=== PATIENT | male | born 1960 | race Caucasian/White ===

== ENCOUNTER 2019-08-26 12:40 | Outpatient (CLI) | payer BC, SELFPAY ==
--- NOTE | ~2019-08-26 | CT_ITS ---
EXAMINATION: CT abdomen w con EXAM DATE: 08/26/2019 13:17 INDICATION: Bloating for one year. Abdominal pain and diarrhea. TECHNIQUE: Spiral CT of the abdomen was performed following intravenous injection of 100 mL Omnipaque 350. Axial, coronal and sagittal images were reviewed. The dose-length product (DLP) for this exam ination was 557.75 mGy-cm. The exposure was tailored according to patient size (auto mA exposure con trol), and iterative reconstruction (ASIR) was used as additional dose reduction technique. There is no prior study for comparison. FINDINGS: There is hepatic steatosis without suspicious focal lesion identified. Spleen, adrenal glan ds, pancreas are unremarkable. There is a 3 x 6 cm peripherally partially calcified gallstone in the gallbladder neck with moderately distended gallbladder fundus likely containing additional small gal lstones. There is no biliary duct dilation, but can't exclude gallbladder dysfunction which could be evaluated with HIDA scan. Portal and splenic veins are patent. Kidneys enhance symmetrically. Ther e is no hydronephrosis. There is no retroperitoneal lymphadenopathy. There is mild scattered art eriosclerotic disease. Small umbilical fat-containing hernia. The appendix is normal. The stomach and small bowel are unremarkable. There is expected amount of c olonic stool. No free intraperitoneal gas. The heart is normal in size. There are no pericardial or pleural effusions. The lung bases are unremarkable. There is chronic L5 spondylolysis with abou t 4 mm anterolisthesis L5 on S1. There are no osteoblastic or osteolytic lesions identified. IMPRESSION: 1. Large gallstone in gallbladder neck with moderately distended fundus containing smaller stones. I f gallbladder dysfunction is clinical possibility, consider HIDA scan. 2. Chronic L5 spondylolysis. 3. Hepatic steatosis. Reviewed, dictated and finalized at location A. IMPRESSION: 1. Large gallstone in gallbladder neck with moderately distended fundus contai fidel smaller stones. If gallbladder dysfunction is clinical possibility, consid er HIDA scan. 2. Chronic L5 spondylolysis. 3. Hepatic steatosis.
[2019-08-26 13:07] LABS: Estimated Glomerular Filt Rate > 60
== END 2019-08-26 12:41 | disposition home or self-care (01) ==
PROVIDERS: PCP Internal Medicine; Visit Provider Clinical Nurse Specialist
DX: M47.896 Other spondylosis, lumbar region (principal); K76.0 Fatty (change of) liver, not elsewhere classified; K80.10 Calculus of gallbladder with chronic cholecystitis without obstruction
CPT/HCPCS: 36415; 74160; Q9967

== ENCOUNTER 2019-09-09 09:44 | Outpatient (CLI) | payer BC, SELFPAY ==
--- NOTE | ~2019-09-09 | NM_ITS ---
EXAMINATION: NM hepatobiliary w pharm DATE: 09/09/2019 14:05 INDICATION: Cholelithiasis. COMPARISON: CT abdomen and pelvis 08/26/2019 TECHNIQUE: 5 mCi Tc-99m mebrofenin (Choletec) was administered intravenously. Scintigraphic images o f the abdomen were obtained for one hour. Delayed images were obtained at 4 hours. FINDINGS: There is normal clearance of radiotracer from the blood pool. There is homogeneous tracer u ptake by the liver. Activity progresses to the bowel. IMPRESSION: 1. No activity in the gallbladder, consistent with acute cholecystitis. Reviewed, dictated and finalized at location A.
== END 2019-09-09 09:45 | disposition home or self-care (01) ==
PROVIDERS: PCP Internal Medicine; Visit Provider Clinical Nurse Specialist
DX: K80.20 Calculus of gallbladder without cholecystitis without obstruction (principal)
CPT/HCPCS: 78227; A9537; J2805

== ENCOUNTER 2019-09-10 13:18 | Outpatient (CLI) | payer BC, SELFPAY ==
[2019-09-10 13:49] LABS: Basophils Percent Auto 0.6 % (0.2-1.2); Eosinophils Absolute Auto 0.1 K/mm3 (0-0.3); Eosinophils Percent Auto 1.8 % (0-4.4); Hematocrit 48.9 % (42.0-52.0); Hemoglobin 16.9 g/dL (14.0-18.0); Immature Granulocyte Absolute 0.01 K/mm3 (0.00-0.031); Immature Granulocyte Percent A 0.2 % (0-0.5); Immature Platelet Fraction Pct 3.3 % (0.9-11.2); Lymphocytes Absolute Auto 1.22 K/mm3 (0.9-3.2); Lymphocytes Percent Auto 24.6 % (18.3-44.2); Mean Corpuscular HGB Conc 34.6 g/dl (32-36); Mean Corpuscular Hemoglobin 32.1 pg (26-34); Mean Corpuscular Volume 92.8 fl (80-100); Mean Platelet Volume 10.2 fl (7.4-10.4); Monocytes Absolute Auto 0.5 K/mm3 (0.1-0.6); Monocytes Percent Auto 10.9 % (2.6-8.5); Neutrophils Absolute Auto 3.1 K/mm3 (1.3-6.7); Neutrophils Percent Auto 61.9 % (45.5-73.1); Platelet Count Result 129 k/mm3 (150-375); Red Blood Count 5.27 M/mm3 (4.6-6.20); Red Cell Distribution Width 11.7 % (11.5-14.5)
[2019-09-10 14:04] LABS: Alanine Aminotransferase 44 U/L (4-50); Albumin Level 4.6 g/dL (3.5-5.1); Alkaline Phosphatase 77 U/L (38-126); Aspartate Amino Transferase 32 U/L (17-59); Bilirubin,Total 0.8 mg/dL (0.2-1.3); Blood Urea Nitrogen 15 mg/dL (9-20); Calcium 9.7 mg/dL (8.4-10.2); Carbon Dioxide 28 mmol/L (22-30); Chloride 100 mmol/L (98-107); Cholesterol 235 mg/dL (0-200); Estimated Glomerular Filt Rate > 60; Glucose 108 mg/dL (75-110); HDL Direct 74 mg/dL; Lipase 132 U/L (23-300); Potassium 4.2 mmol/L (3.4-5.0); Sodium 136 mmol/L (137-145); Triglycerides 128 mg/dL (<150)
[2019-09-10 14:15] LABS: LDL Cholesterol Direct 141 mg/dL
[2019-09-10 14:28] LABS: Amylase 88 U/L (30-110)
[2019-09-15 12:18] LABS: Gliadin AB, IgG 3 Units (<20); Reticulin IgA Negative (Negative); TTG IGA AB 1 U/mL (<4)
== END 2019-09-10 13:19 | disposition home or self-care (01) ==
PROVIDERS: PCP Internal Medicine; Visit Provider Clinical Nurse Specialist
DX: R19.7 Diarrhea, unspecified (principal); I10 Essential (primary) hypertension; R19.8 Other specified symptoms and signs involving the digestive system and abdomen
CPT/HCPCS: 36415; 80053; 80061; 82150; 83516; 83690; 85025; 85055; 86255

== ENCOUNTER 2019-12-27 01:09 | Outpatient (CLI) | payer BC, SELFPAY ==
[2019-12-27 17:59] LABS: SARS-CoV-2 RNA PCR Negative
== END 2019-12-27 01:10 | disposition home or self-care (01) ==
LOC: ANHCOVIDDT 01:09
PROVIDERS: PCP Internal Medicine; Visit Provider Internal Medicine Gastroenterology
DX: Z01.812 Encounter for preprocedural laboratory examination (principal); Z20.828 Contact with and (suspected) exposure to other viral communicable diseases
CPT/HCPCS: 87635; C9803; U0003

== ENCOUNTER 2019-12-30 01:03 | Day surgery (SDC) | payer BC, SELFPAY ==
[2019-12-23 16:27] VITALS: BMI 28.5
[2019-12-30 10:08] VITALS: BP 125/87; PULSE 93; RESP 20; TEMP 36.6; O2SAT 98
[2019-12-30] MEDS: LACTATED RINGERS 1,000 ML 150 ML IV CONT ×2 (10:18→13:51)
--- NOTE | 2019-12-30 10:57 | WPDANESEPPF ---
Anes - Initial Pre Proc Eval Procedure: Operation Date: 12/30/19 11:00 Proposed Procedures p Screening Colonoscopy - Dc Cobian MD Date/Time: 12/30/19 10:57 Surgeon: Dc Cobian MD Pre Op Diagnosis: neoplasm screening Patient Data Age: 59 Gender: M Height: 5 ft 11 in Weight: 91.4 kg Last Vital Signs Temp 97.8 F 12/30/19 10:08 Pulse 93 12/30/19 10:08 Resp 20 12/30/19 10:08 BP 125/87 12/30/19 10:08 Pulse Ox 98 12/30/19 10:08 Allergies Allergy/AdvReac Type Severity Reaction Status Date / Time No Known Allergies Allergy Verified 12/30/19 10:06 Home Medications Medication Instructions Recorded Confirmed Type melatonin 5 mg tablet 5 mg PO DAILY PRN tablet 02/10/19 12/30/19 History lisinopril 10 mg tablet 10 mg PO DAILY #30 tablet 10/02/19 12/23/19 Rx alprazolam 0.5 mg tablet 0.5 mg PO DAILY PRN #30 tablet 12/19/19 12/23/19 Rx hydroxyzine HCl 50 mg PO HS PRN 12/23/19 12/23/19 History Patient hx anesthesia problems: none Family hx anesthesia problems: none PMFSH Past Medical History Medical History (Updated 10/27/19 @ 15:01 by Swati Wolf NP) Anxiety Cholecystectomy planned 09/2019. Depression HTN (hypertension) Family History Family History (Updated 02/10/19 @ 08:45 by Daisy Brunson CMA) Father Diabetes mellitus Family history of cardiovascular disease Mother Dementia Parkinsons disease Sibling Family history of elevated blood lipids Son Anxiety and depression Social History Social History (Updated 09/10/19 @ 15:08 by Daisy Brunson CMA) Smoking status: Never smoker Alcohol intake: current Drinks per week: 20 Alcohol use details: DRINKS 2 TO 3 GLASSES OF WINE PER NIGHT Substance use: never Substance use type: does not use Spiritual care concerns: No Anes - Eval Final PreProcedure Day of Procedure 12/30/19 10:57 Patient weight: normal Heart: regular rate and rhythm Lungs: clear to auscultation Airway: Mallampati scale class II Neurological: alert and oriented Last oral intake: >/= 8 hours ASA classification: II Emergent: no Anesthetic plan: proceed Anesthesia type and monitoring: general GIVS and standard monitoring Informed Consent: The patient's anesthetic plan and its attendant risks and benefits were discussed with the patient/family/POA. Questions were solicited and answers provided to the satisfaction of the patient/family/POA.
--- NOTE | 2019-12-30 13:22 | PM.HPGS ---
History of Present Illness History of Present Illness Consent: Risks, benefits, and alternatives have been discussed and questions answered. Patient agrees to proceed with procedure. Chief complaint: neoplasm screening Narrative: Marco A Guerrero is a 59 year old male here for screening colonoscopy Review of Systems Constitutional: Constitutional: Denies headache(s) and Denies weakness Eyes: Eyes: Denies blurry vision ENT: Reports Normal hearing present, Denies headache(s) and Denies neck pain Cardiovascular: Cardiovascular: Denies chest pain and Denies dyspnea Respiratory: Respiratory: Denies dyspnea Gastrointestinal: Gastrointestinal: Reports no additional gastrointestinal complaints Genitourinary: Genitourinary: Denies dysuria Musculoskeletal: Musculoskeletal: Denies neck pain Integumentary/Breasts: Skin/Breast: Denies dry skin Neurologic: Reports Normal hearing present, Denies headache(s) and Denies weakness Psychiatric: Psychiatric: Denies anxiety Endocrine: Endocrine: Denies change in body appearance Hematologic/Lymphatic: Hematologic/Lymphatic: Denies easy bleeding Allergic/Immunologic: Allergic/Immunologic: Denies urticaria [facility] Past Medical History Medical History (Updated 12/30/19 @ 13:22 by Dc Cobian MD) Anxiety Cholecystectomy planned 09/2019. Colon cancer screening Depression HTN (hypertension) Family History Family History (Updated 02/10/19 @ 08:45 by Daisy Brunson CMA) Father Diabetes mellitus Family history of cardiovascular disease Mother Dementia Parkinsons disease Sibling Family history of elevated blood lipids Son Anxiety and depression Social History Social History (Updated 09/10/19 @ 15:08 by Daisy Brunson CMA) Smoking status: Never smoker Alcohol intake: current Drinks per week: 20 Alcohol use details: DRINKS 2 TO 3 GLASSES OF WINE PER NIGHT Substance use: never Substance use type: does not use Spiritual care concerns: No Meds Home Medications and Allergies Home Medications Medication Instructions Recorded Confirmed Type melatonin 5 mg tablet 5 mg PO DAILY PRN tablet 02/10/19 12/30/19 History lisinopril 10 mg tablet 10 mg PO DAILY #30 tablet 10/02/19 12/23/19 Rx alprazolam 0.5 mg tablet 0.5 mg PO DAILY PRN #30 tablet 12/19/19 12/23/19 Rx hydroxyzine HCl 50 mg PO HS PRN 12/23/19 12/23/19 History Allergies Allergy/AdvReac Type Severity Reaction Status Date / Time No Known Allergies Allergy Verified 12/30/19 10:06 Vital Signs Vital Signs - 24 hr 12/30/19 10:08 Temperature 97.8 F Pulse Rate 93 Respiratory Rate 20 Blood Pressure 125/87 Pulse Oximetry 98 Exam Const: General: comfortable and no acute distress HENMT: General nose exam: Normal nares present Eyes: General: appearance normal, both eyes and all related structures Neck: Neck: no JVD Resp: Auscultation: clear to auscultation bilaterally Cardio: Rate: regular rate Rhythm: regular rhythm GI: Inspection: non-distended GI Palp: Yes Soft to palpation Skin: General skin exam: normal color Neuro: General: gait normal Speech: normal speech Extrem: General: normal to inspection Psych: Mental Status: mental status grossly normal Assessment and Plan Assessment and plan (1) Colon cancer screening: Code(s): Z12.11 - Encounter for screening for malignant neoplasm of colon Status: Acute Assessment and Plan: will proceed with colonoscopy
[2019-12-30 13:53] VITALS: BP 114/78; PULSE 85; RESP 18; O2SAT 99
[2019-12-30 14:03] VITALS: BP 131/84; PULSE 90; RESP 20; O2SAT 99
[2019-12-30 14:13] VITALS: BP 130/83; PULSE 79; RESP 21; O2SAT 100
== END 2019-12-30 14:20 | disposition home or self-care (01) ==
PROVIDERS: PCP Internal Medicine; Visit Provider Internal Medicine Gastroenterology
PROC: 0DJD8ZZ Inspection of Lower Intestinal Tract, Via Natural or Artificial Opening Endoscopic (ICD-10-PCS; CPT 45378; principal; 2019-12-30 11:00)
DX: Z12.11 Encounter for screening for malignant neoplasm of colon (principal); D12.0 Benign neoplasm of cecum; D12.3 Benign neoplasm of transverse colon; D12.5 Benign neoplasm of sigmoid colon; K57.30 Diverticulosis of large intestine without perforation or abscess without bleeding; I10 Essential (primary) hypertension; F41.8 Other specified anxiety disorders
CPT/HCPCS: 45380; 45385; 88305; J2704; J7120

== ENCOUNTER 2020-02-18 16:22 | Outpatient (CLI) | payer BC, SELFPAY ==
[2020-02-23 15:35] LABS: Testosterone Free 85.6 pg/mL (35.0-155.0); Testosterone Total 586 ng/dL (250-1100)
== END 2020-02-18 16:23 | disposition home or self-care (01) ==
LOC: ANHLAB 16:24
PROVIDERS: PCP Internal Medicine; Visit Provider Nurse Practitioner
DX: R53.83 Other fatigue (principal)
CPT/HCPCS: 36415; 84402; 84403

== ENCOUNTER 2020-12-16 08:17 | Outpatient (CLI) | payer BC, SELFPAY ==
--- NOTE | 2020-12-16 08:30 | ECG_ITS ---
Measurements Intervals [place] Rate: 88 P: 37 AK: 162 QRS: -21 QRSD: 86 T: 41 QT: 350 QTc: 424 Interpretive Statements SINUS RHYTHM POOR R WAVE PROGRESSION, ANTERIOR LEADS BORDERLINE ECG Electronically Signed On 12-16-2020 9:19:47 CDT by Shade Betancourt D.O.
== END 2020-12-16 08:18 | disposition home or self-care (01) ==
LOC: ANHSURGERY 08:21
PROVIDERS: PCP Internal Medicine; Visit Provider Surgery Plastic and Reconstructive Surgery
DX: Z01.810 Encounter for preprocedural cardiovascular examination (principal); I10 Essential (primary) hypertension
CPT/HCPCS: 93005

== ENCOUNTER 2021-02-19 12:48 | Outpatient (CLI) | payer BC, SELFPAY ==
[2021-02-21 10:57] LABS: PCP NEGATIVE ng/mL (<25)
[2021-02-24 07:20] LABS: Amphetamines NEGATIVE; Barbiturates NEGATIVE; Benzodiazepines NEGATIVE; Cocaine Metabolites NEGATIVE; Marijuana Metabolites NEGATIVE
[2021-02-24 07:24] LABS: Notes and Comments NEGATIVE
== END 2021-02-19 12:49 | disposition home or self-care (01) ==
LOC: ANHLAB 12:50
PROVIDERS: PCP Internal Medicine; Visit Provider Clinical Nurse Specialist
DX: F41.9 Anxiety disorder, unspecified (principal)
CPT/HCPCS: 80307

== ENCOUNTER → 2022-01-16 14:31 | Outpatient (CLI) | payer BC, SELFPAY ==
--- NOTE | ~2022-01-16 | XR_ITS ---
XR elbow RT min 3V DATE: 01/16/2022 14:49 INDICATION: Elbow pain after coughing TECHNIQUE: 3 views COMPARISON: None FINDINGS: No fracture or dislocation or joint effusion. No periosteal reaction or bone destruction. IMPRESSION: No fracture or dislocation or joint effusion Reviewed, dictated and finalized at location A.
== END ==
PROVIDERS: PCP Internal Medicine; Visit Provider Internal Medicine
DX: M25.521 Pain in right elbow (principal)
CPT/HCPCS: 73080

== ENCOUNTER 2022-03-24 08:15 | Outpatient (CLI) | payer BC, SELFPAY ==
[2022-03-24 09:00] LABS: Basophils Percent Auto 0.6 % (0.2-1.2); Eosinophils Absolute Auto 0.1 K/mm3 (0-0.3); Eosinophils Percent Auto 2.2 % (0-4.4); Hematocrit 49.7 % (42.0-52.0); Hemoglobin 17.2 g/dL (14.0-18.0); Immature Granulocyte Absolute 0.01 K/mm3 (0.00-0.031); Immature Granulocyte Percent A 0.3 % (0-0.5); Lymphocytes Absolute Auto 1.15 K/mm3 (0.9-3.2); Lymphocytes Percent Auto 35.4 % (18.3-44.2); Mean Corpuscular HGB Conc 34.6 g/dl (32-36); Mean Corpuscular Hemoglobin 32.5 pg (26-34); Mean Platelet Volume 9.6 fl (7.4-10.4); Monocytes Absolute Auto 0.4 K/mm3 (0.1-0.6); Monocytes Percent Auto 13.5 % (2.6-8.5); Neutrophils Absolute Auto 1.6 K/mm3 (1.3-6.7); Platelet Count Result 111 k/mm3 (150-375); Red Blood Count 5.29 M/mm3 (4.6-6.20); Red Cell Distribution Width 12.3 % (11.5-14.5); White Blood Count 3.3 K/mm3 (4.5-10.0)
[2022-03-24 09:14] LABS: Alanine Aminotransferase 58 U/L (6-50); Albumin Level 4.5 g/dL (3.5-5.1); Alkaline Phosphatase 75 U/L (38-126); Anion Gap 6 mmol/L (8-16); Aspartate Amino Transferase 42 U/L (17-59); Bilirubin,Total 0.7 mg/dL (0.2-1.3); Blood Urea Nitrogen 15 mg/dL (9-20); Carbon Dioxide 30 mmol/L (22-30); Chloride 102 mmol/L (98-107); Cholesterol 271 mg/dL (0-200); Estimated Glomerular Filt Rate > 60; Glucose 102 mg/dL (65-110); HDL Direct 95 mg/dL; Potassium 4.5 mmol/L (3.4-5.0); Sodium 138 mmol/L (137-145); Triglycerides 150 mg/dL (<150)
[2022-03-24 09:25] LABS: LDL Cholesterol Direct 120 mg/dL
[2022-03-24 09:43] LABS: Prostate Specific Antigen 4.8 ng/mL (< OR = 4.0)
== END 2022-03-24 08:16 | disposition home or self-care (01) ==
PROVIDERS: PCP Internal Medicine; Visit Provider Nurse Practitioner
DX: Z12.5 Encounter for screening for malignant neoplasm of prostate (principal); Z13.220 Encounter for screening for lipoid disorders; Z13.29 Encounter for screening for other suspected endocrine disorder
CPT/HCPCS: 36415; 80053; 80061; 84153; 85025; G0103

== ENCOUNTER 2022-05-03 00:10 | Day surgery (SDC) | payer BC, SELFPAY ==
[2022-04-20 13:58] VITALS: BMI 28.5
[2022-05-03 07:10] VITALS: BP 136/89; PULSE 84; RESP 18; TEMP 36.1; O2SAT 98
[2022-05-03] MEDS: LACTATED RINGERS 1,000 ML 150 ML IV CONT (07:12)
--- NOTE | 2022-05-03 07:54 | WPDANESEPPF ---
Anes - Initial Pre Proc Eval Procedure: Operation Date: 05/03/22 08:30 Proposed Procedures p Screening Colonoscopy - Dc Cobian MD Date/Time: 05/03/22 07:54 Surgeon: Dc Cobian MD Pre Op Diagnosis: hx colon polyps Patient Data Age: 62 Gender: M Height: 1.8 m Weight: 91.3 kg Last Vital Signs Temp 96.9 F L 05/03/22 07:10 Pulse 84 05/03/22 07:10 Resp 18 05/03/22 07:10 BP 136/89 05/03/22 07:10 Pulse Ox 98 05/03/22 07:10 O2 Del Method Room Air 05/03/22 07:10 Allergies Allergy/AdvReac Type Severity Reaction Status Date / Time No Known Allergies Allergy Verified 05/03/22 07:09 Home Medications Medication Instructions Recorded Confirmed Type melatonin 5 mg tablet 10 mg PO HS PRN Insomnia 02/10/19 05/03/22 History lisinopril 10 mg tablet 10 mg PO DAILY #90 tabs 08/04/21 05/03/22 Rx alprazolam 0.5 mg tablet (Xanax) 0.5 mg PO DAILY PRN anxiety #30 03/29/22 05/03/22 Rx tabs atorvastatin 10 mg tablet 10 mg PO QHS #90 tabs 03/30/22 05/03/22 Rx diphenhydramine HCl 25 mg tablet 25 mg PO HS PRN Insomnia 04/20/22 05/03/22 History esomeprazole magnesium 20 mg 20 mg PO DAILY 04/20/22 05/03/22 History capsule,delayed release hydroxyzine HCl 50 mg tablet 50 mg PO HS 04/20/22 05/03/22 History mecobalamin (vitamin B12) 5,000 5,000 mcg PO DAILY 04/20/22 05/03/22 History mcg chewable tablet pyridoxine (vitamin B6) 100 mg 100 mg PO DAILY 04/20/22 05/03/22 History tablet vit 1 tablet PO DAILY 04/20/22 05/03/22 History [id number] 500 mg-50 mg-25 mg-40 mg tablet (Bioflex) Patient hx anesthesia problems: none Family hx anesthesia problems: none Results Review: All pre-operative results and documents have been reviewed as part of the pre-operative evaluation. [facility] Past Medical History Medical History (Updated 03/30/22 @ 15:24 by Swati Wolf NP) Anxiety Colon cancer screening Depression Elevated PSA HTN (hypertension) Hyperlipidemia Surgical History Surgical History History of cholecystectomy History of colonoscopy History of knee surgery Family History Family History Father Diabetes mellitus Family history of cardiovascular disease Mother Dementia Parkinsons disease Sibling Family history of elevated blood lipids Son Anxiety and depression Social History Social History (Updated 03/30/22 @ 14:50 by Karen Rasmussen MA) Smoking status: Never smoker Alcohol intake: current Drinks per week: 14 Alcohol use details: wine Substance use: never Substance use type: does not use Lack of Transportation: No Lack of Food: Sometimes True Current Housing: I Have Housing Concerned About Future Housing: No Difficulty Paying Gas/Electric Bills: No Difficulty Paying for Meds: No Currently Unemployed: No Education: Bachelor's Degree Difficulty w/ Childcare or Family Care: No Living arrangements: alone Spiritual care concerns: No Anes - Eval Final PreProcedure Day of Procedure 05/03/22 07:54 Patient weight: normal Heart: regular rate and rhythm Lungs: clear to auscultation Airway: Mallampati scale class II Neurological: alert and oriented Last oral intake: >/= 8 hours ASA classification: II Emergent: no Anesthetic plan: proceed Anesthesia type and monitoring: general GIVS and standard monitoring Results Review: All pre-operative results and documents have been reviewed as part of the pre-operative evaluation. Informed Consent: The patient's anesthetic plan and its attendant risks and benefits were discussed with the patient/family/POA. Questions were solicited and answers provided to the satisfaction of the patient/family/POA.
--- NOTE | 2022-05-03 08:25 | PM.HPGS ---
History of Present Illness History of Present Illness Consent: Risks, benefits, and alternatives have been discussed and questions answered. Patient agrees to proceed with procedure. Chief complaint: hx colon polyps Narrative: Marco A Guerrero is a 62 year old male with several TA polyps removed 10/2021 Review of Systems Constitutional: Constitutional: Denies headache(s) and Denies weakness Eyes: Eyes: Denies blurry vision ENT: Reports Normal hearing present, Denies headache(s) and Denies neck pain Cardiovascular: Cardiovascular: Denies chest pain and Denies dyspnea Respiratory: Respiratory: Denies dyspnea Gastrointestinal: Gastrointestinal: Reports no additional gastrointestinal complaints Genitourinary: Genitourinary: Denies dysuria Musculoskeletal: Musculoskeletal: Denies neck pain Integumentary/Breasts: Skin/Breast: Denies dry skin Neurologic: Reports Normal hearing present, Denies headache(s) and Denies weakness Psychiatric: Psychiatric: Denies anxiety Endocrine: Endocrine: Denies change in body appearance Hematologic/Lymphatic: Hematologic/Lymphatic: Denies easy bleeding Allergic/Immunologic: Allergic/Immunologic: Denies urticaria PMFSH Past Medical History Medical History (Updated 05/03/22 @ 08:26 by Dc Cobian MD) Adenomatous colon polyp Anxiety Colon cancer screening Depression Elevated PSA HTN (hypertension) Hyperlipidemia Surgical History Surgical History History of cholecystectomy History of colonoscopy History of knee surgery Family History Family History Father Diabetes mellitus Family history of cardiovascular disease Mother Dementia Parkinsons disease Sibling Family history of elevated blood lipids Son Anxiety and depression Social History Social History (Updated 03/30/22 @ 14:50 by Karen Rasmussen MA) Smoking status: Never smoker Alcohol intake: current Drinks per week: 14 Alcohol use details: wine Substance use: never Substance use type: does not use Lack of Transportation: No Lack of Food: Sometimes True Current Housing: I Have Housing Concerned About Future Housing: No Difficulty Paying Gas/Electric Bills: No Difficulty Paying for Meds: No Currently Unemployed: No Education: Bachelor's Degree Difficulty w/ Childcare or Family Care: No Living arrangements: alone Spiritual care concerns: No Meds Home Medications and Allergies Home Medications Medication Instructions Recorded Confirmed Type melatonin 5 mg tablet 10 mg PO HS PRN Insomnia 02/10/19 05/03/22 History lisinopril 10 mg tablet 10 mg PO DAILY #90 tabs 08/04/21 05/03/22 Rx alprazolam 0.5 mg tablet (Xanax) 0.5 mg PO DAILY PRN anxiety #30 03/29/22 05/03/22 Rx tabs atorvastatin 10 mg tablet 10 mg PO QHS #90 tabs 03/30/22 05/03/22 Rx diphenhydramine HCl 25 mg tablet 25 mg PO HS PRN Insomnia 04/20/22 05/03/22 History esomeprazole magnesium 20 mg 20 mg PO DAILY 04/20/22 05/03/22 History capsule,delayed release hydroxyzine HCl 50 mg tablet 50 mg PO HS 04/20/22 05/03/22 History mecobalamin (vitamin B12) 5,000 5,000 mcg PO DAILY 04/20/22 05/03/22 History mcg chewable tablet pyridoxine (vitamin B6) 100 mg 100 mg PO DAILY 04/20/22 05/03/22 History tablet vit 1 tablet PO DAILY 04/20/22 05/03/22 History [id number] 500 mg-50 mg-25 mg-40 mg tablet (BioYashi) Allergies Allergy/AdvReac Type Severity Reaction Status Date / Time No Known Allergies Allergy Verified 05/03/22 07:09 Vital Signs Vital Signs - 24 hr 05/03/22 07:10 Temperature 96.9 F L Pulse Rate 84 Respiratory Rate 18 Blood Pressure 136/89 Pulse Oximetry 98 Oxygen Delivery Room Air Exam Const: General: comfortable and no acute distress HENMT: Face/Nose/Sinus: Normal nares present Eyes: General: appearance normal,
[2022-05-03 08:49] VITALS: BP 93/53; PULSE 76; RESP 25; O2SAT 97
[2022-05-03 08:59] VITALS: BP 111/81; PULSE 72; RESP 22; O2SAT 99
[2022-05-03 09:09] VITALS: BP 120/85; PULSE 63; RESP 21; O2SAT 100
== END 2022-05-03 09:17 | disposition home or self-care (01) ==
PROVIDERS: PCP Internal Medicine; Visit Provider Internal Medicine Gastroenterology
PROC: 0DJD8ZZ Inspection of Lower Intestinal Tract, Via Natural or Artificial Opening Endoscopic (ICD-10-PCS; CPT 45378; principal; 2022-05-03 08:30)
DX: Z12.11 Encounter for screening for malignant neoplasm of colon (principal); D12.2 Benign neoplasm of ascending colon; D12.4 Benign neoplasm of descending colon; K57.30 Diverticulosis of large intestine without perforation or abscess without bleeding; K64.8 Other hemorrhoids; I10 Essential (primary) hypertension; E78.5 Hyperlipidemia, unspecified; F41.9 Anxiety disorder, unspecified; F32.A Depression, unspecified
CPT/HCPCS: 45385; 88305; J2704; J7120

== ENCOUNTER 2022-05-29 15:00 | Outpatient (CLI) | payer BC, SELFPAY ==
--- NOTE | 2022-05-29 14:30 | ECG_ITS ---
Measurements Intervals [place] Rate: 75 P: 28 ME: 175 QRS: -8 QRSD: 86 T: 17 QT: 373 QTc: 417 Interpretive Statements SINUS RHYTHM BORDERLINE R WAVE PROGRESSION, ANTERIOR LEADS BASELINE ARTIFACT- I, II, III, AVR, AVL, AVF BORDERLINE ECG COMPARED TO ECG 12/16/2020 08:33:23 NO SIGNIFICANT CHANGES Electronically Signed On 05-29-2022 16:50:37 [employer]PET RENOVATOR by Shade Betancourt D.O.
== END 2022-05-29 15:01 | disposition home or self-care (01) ==
LOC: ANHSURGERY 15:04
PROVIDERS: PCP Internal Medicine; Visit Provider Surgery Plastic and Reconstructive Surgery
DX: E78.5 Hyperlipidemia, unspecified (principal); Z01.818 Encounter for other preprocedural examination; R94.31 Abnormal electrocardiogram [ECG] [EKG]
CPT/HCPCS: 93005

== ENCOUNTER 2022-06-05 15:42 | Outpatient (CLI) | payer BC, SELFPAY ==
[2022-06-05 15:59] LABS: Basophils Percent Auto 0.5 % (0.2-1.2); Eosinophils Absolute Auto 0.1 K/mm3 (0-0.3); Eosinophils Percent Auto 1.4 % (0-4.4); Hematocrit 47.1 % (42.0-52.0); Hemoglobin 16.5 g/dL (14.0-18.0); Immature Granulocyte Absolute 0.01 K/mm3 (0.00-0.031); Immature Granulocyte Percent A 0.2 % (0-0.5); Immature Platelet Fraction Pct 4.3 % (0.9-11.2); Lymphocytes Absolute Auto 0.96 K/mm3 (0.9-3.2); Lymphocytes Percent Auto 22.2 % (18.3-44.2); Mean Corpuscular Hemoglobin 32.4 pg (26-34); Mean Corpuscular Volume 92.5 fl (80-100); Mean Platelet Volume 9.5 fl (7.4-10.4); Monocytes Absolute Auto 0.4 K/mm3 (0.1-0.6); Monocytes Percent Auto 9.5 % (2.6-8.5); Neutrophils Absolute Auto 2.9 K/mm3 (1.3-6.7); Neutrophils Percent Auto 66.2 % (45.5-73.1); Platelet Count Result 109 k/mm3 (150-375); Red Blood Count 5.09 M/mm3 (4.6-6.20); Red Cell Distribution Width 11.8 % (11.5-14.5); White Blood Count 4.3 K/mm3 (4.5-10.0)
[2022-06-05 16:32] LABS: Iron 144 ug/dL (49-181)
[2022-06-05 16:34] LABS: Alanine Aminotransferase 49 U/L (6-50); Albumin Level 4.3 g/dL (3.5-5.1); Alkaline Phosphatase 74 U/L (38-126); Anion Gap 3 mmol/L (8-16); Aspartate Amino Transferase 37 U/L (17-59); Bilirubin,Total 0.9 mg/dL (0.2-1.3); Blood Urea Nitrogen 15 mg/dL (9-20); Calcium 9.1 mg/dL (8.4-10.2); Carbon Dioxide 32 mmol/L (22-30); Chloride 99 mmol/L (98-107); Estimated Glomerular Filt Rate > 60; Glucose 105 mg/dL (65-110); Potassium 4.3 mmol/L (3.4-5.0); Sodium 134 mmol/L (137-145)
[2022-06-05 16:44] LABS: Percent Iron Saturation 49 % (20-50)
[2022-06-09 08:31] LABS: Reference Lab Test Result Negative
== END 2022-06-05 15:43 | disposition home or self-care (01) ==
LOC: ANHLAB 15:43
PROVIDERS: PCP Internal Medicine; Visit Provider Internal Medicine Hematology & Oncology
DX: D69.59 Other secondary thrombocytopenia (principal)
CPT/HCPCS: 36415; 80053; 82607; 82728; 83540; 83550; 85025; 85055; 86023

== ENCOUNTER 2022-06-06 00:32 | Day surgery (SDC) | payer BC, SELFPAY ==
--- NOTE | 2022-05-26 14:01 | SUR.PREOP ---
Report to the Outpatient Waiting Room, entrance under the green pavilion located off [facility], at time 1030 on date 06/06/22. Planned Procedure Time: 1230. Time changes happen often and if your time is changed the preop area will call you the afternoon before. - You and your visitor will be asked to self-screen and do not enter if you have any COVID symptoms. - Only one visitor is requested with a max of two and NO children visitors are allowed at this time. - The patient visitor may be requested to leave or wait in car when not with patient due to distancing restrictions. - A mask is optional within the hospital at this time. Patients may have clear liquids (water, carbonated beverages, clear teas, apple juice) until 3 hours prior to surgery with a maximum of 20 ounces. - No food from midnight until time of surgery - Infants may have breast milk until 4 hours before surgery, formula 6 hours prior to surgery. - Children will be allowed to drink immediately following surgery. If applicable, please bring a bottle or sippy cup to assist with drinking. Juice, water, soda, and popsicles are readily available. For infants on formula, please bring formula the day of surgery. Pacifiers are allowed. Take the following medications with a SIP of water the morning of surgery: XANAX DO NOT STOP ANY OF YOUR OTHER PRESCRIPTION MEDICATIONS PRIOR TO SURGERY ?EXCEPT THE FOLLOWING Medications to discontinue per physician VITAMINS & SUPPLEMENTS Date to take last dose 06/03/22 Please no make-up, nail yoruba, hairspray, perfume, deodorant, or body powder the day of surgery. No jewelry (including any body piercings) or valuables the day of surgery, leave them at home. Please take a shower or bath the night before, or the morning of, surgery with an antibacterial soap. Wear comfortable, loose fitting clothing. Children are encouraged to wear pajamas. - Jewelry must be removed prior to entering the operating room. Rings and piercings that are not removed may be cut off. - The hospital will not accept responsibility for valuables. - Please leave all valuables, including medications, at home the day of surgery. If you are going home after surgery, a licensed customer service driver must drive you home. - NO public transportation without another adult if you receive anesthesia. - We recommend that an adult stay with you for 24 hours following discharge. - We also recommend that you do not drive, make important decision, drink alcoholic beverages, or take any drugs that were not prescribed by your health care provider for at least 24 hours after your discharge time. For Pediatric surgeries, we recommend two adults accompany the child home. Follow any additional instructions given to you from your surgeon. If you or anyone in your household have experienced Covid symptoms in the past week, please notify your surgeon or the nurse liaison at the phone number below for possible testing. Telephone instructions given to IRINA BAZZI and asked if any additional questions and then verbalized understanding. Patient advised to call surgeon office or pre surgery nurse liaison [phone] if any additional questions.
[2022-05-26 14:14] VITALS: BMI 28.5
[2022-06-06] VITALS (7 sets, daily range): BP systolic 129–145; BP diastolic 87–98; PULSE 65–84; RESP 14–16; TEMP 36.3; O2SAT 98–100
--- NOTE | 2022-06-06 12:10 | WPDHPUPDATE1 ---
History and Physical Update Update Date/Time: 06/06/22 12:10 History and Physical has been reviewed, including an updated exam of the patient. There are NO changes in the patient's condition. Risks, benefits, and alternatives have been discussed and questions answered. Patient agrees to proceed with procedure.
[2022-06-06] MEDS: LACTATED RINGERS 1,000 ML 30 ML IV CONT (13:05)
--- NOTE | 2022-06-06 13:16 | P.OP_ITS ---
Procedure Note - Detailed Date of Procedure 06/06/22 Pre-op Diagnosis subq mass right lateral canthus Post-op Diagnosis Same Procedure Performed 1. Excisions right upper eyelid lateral cyst (lateral) 0.3 cm 2. Excisions right upper eyelid lateral cyst (medial) 0.2 cm Surgeon Yuval Santos MD Anesthesia General Description of Procedure Preoperatively the risks, benefits alternatives discussed in extensive detail. I want him to be very realistic about risks involved as well as expectations. He understands risk of blindness. He understands the risk of recurrence. He understands the risk of long-term lid dysfunction, dry eyes, and other visual concerns / vision loss. All questions were answered to him his family's satisfaction. They voiced a clear understanding. Consent obtained. He was marked in the preoperative holding area. He was taken to the operating room placed supine on the operating room table. Anesthesia provided by anesthesiology and prepped and draped in standard sterile fashion. Surgical time-out was taken. 1% lidocaine and 0.25% Marcaine with epinephrine was used anesthetize locally. These were excised and closed with 5-0 fast- absorbing gut. See dimensions as above. He was awoken taken to the PACU without difficulty. All instrument sponge counts were correct at the end of the case. Estimated Blood Loss 5 Drains No Packing No Pathology Yes (Right upper lateral lid cysts x 2) Complications No immediate complications Condition Stable Disposition PACU
--- NOTE | 2022-06-06 13:23 | WPDANESEPPF ---
Anes - Initial Pre Proc Eval Procedure: Operation Date: 06/06/22 12:30 Proposed Procedures p Excision Subcutaneous Mass Right Lateral Canthus - Yuval Santos MD Date/Time: 06/06/22 13:23 Surgeon: Yuval Santos MD Pre Op Diagnosis: subq mass right lateral canthus Patient Data Age: 62 Gender: M Height: 1.8 m Weight: 93.7 kg Last Vital Signs Temp 36.3 C L 06/06/22 11:54 Pulse 84 06/06/22 11:54 Resp 14 06/06/22 11:54 BP 129/89 06/06/22 11:54 Pulse Ox 100 06/06/22 11:54 O2 Del Method Room Air 06/06/22 11:54 Allergies Allergy/AdvReac Type Severity Reaction Status Date / Time No Known Allergies Allergy Verified 06/06/22 12:10 Home Medications Medication Instructions Recorded Confirmed Type melatonin 5 mg tablet 10 mg PO HS PRN Insomnia 02/10/19 05/26/22 History lisinopril 10 mg tablet 10 mg PO DAILY #90 tabs 08/04/21 05/26/22 Rx alprazolam 0.5 mg tablet (Xanax) 0.5 mg PO DAILY PRN anxiety #30 03/29/22 05/26/22 Rx tabs atorvastatin 10 mg tablet 10 mg PO QHS #90 tabs 03/30/22 05/26/22 Rx diphenhydramine HCl 25 mg tablet 25 mg PO HS PRN Insomnia 04/20/22 05/26/22 History esomeprazole magnesium 20 mg 20 mg PO DAILY 04/20/22 05/26/22 History capsule,delayed release hydroxyzine HCl 50 mg tablet 50 mg PO HS 04/20/22 05/26/22 History mecobalamin (vitamin B12) 5,000 5,000 mcg PO DAILY 04/20/22 05/26/22 History mcg chewable tablet pyridoxine (vitamin B6) 100 mg 100 mg PO DAILY 04/20/22 05/26/22 History tablet vit 1 tablet PO DAILY 04/20/22 05/26/22 History [id number]-bemhchi-[id number] 500 mg-50 mg-25 mg-40 mg tablet (Bioflex) Patient hx anesthesia problems: none Family hx anesthesia problems: none Results Review: All pre-operative results and documents have been reviewed as part of the pre-operative evaluation. [facility] Past Medical History Medical History Adenomatous colon polyp Anxiety Colon cancer screening Depression Elevated PSA HTN (hypertension) Hyperlipidemia Surgical History Surgical History History of cholecystectomy History of colonoscopy History of knee surgery Family History Family History Father Diabetes mellitus Family history of cardiovascular disease Mother Dementia Parkinsons disease Sibling Family history of elevated blood lipids Son Anxiety and depression Social History Social History Smoking status: Never smoker Alcohol intake: current Drinks per week: 14 Alcohol use details: wine Substance use: never Substance use type: does not use Lack of Transportation: No Lack of Food: Sometimes True Current Housing: I Have Housing Concerned About Future Housing: No Difficulty Paying Gas/Electric Bills: No Difficulty Paying for Meds: No Currently Unemployed: No Education: Bachelor's Degree Difficulty w/ Childcare or Family Care: No Living arrangements: alone Spiritual care concerns: No Anes - Eval Final PreProcedure Day of Procedure 06/06/22 13:23 Patient weight: overweight Heart: regular rate and rhythm Lungs: clear to auscultation Airway: Mallampati scale class II Neurological: alert and oriented Last oral intake: >/= 8 hours ASA classification: II Emergent: no Anesthetic plan: proceed Anesthesia type and monitoring: general LMA and standard monitoring Results Review: All pre-operative results and documents have been reviewed as part of the pre-operative evaluation. Informed Consent: The patient's anesthetic plan and its attendant risks and benefits were discussed with the patient/family/POA. Questions were solicited and answers provided to the satisfaction of the patient/family/POA.
[2022-06-06] MEDS: TETRACAINE HCL 0.5% OPHTH SOLN 4 ML BTL 1 DROP EACH EYE (13:25)
[2022-06-06] MEDS: BUPivacaine HCL 0.25% PF 10 ML VIAL INFILTRATE (13:25)
[2022-06-06] MEDS: ceFAZolin 2 GM/D5W 50 ML 2 GM/50 ML BAG IVPB (13:25)
[2022-06-06] MEDS: LIDO 1%/EPINEPHRINE 1:100,000 20 ML VIAL INFILTRATE (13:51)
== END 2022-06-06 15:19 | disposition home or self-care (01) ==
PROVIDERS: PCP Internal Medicine; Visit Provider Surgery Plastic and Reconstructive Surgery
PROC: (CPT 11440; principal; 2022-06-06 12:30)
DX: L72.0 Epidermal cyst (principal); D23.111 Other benign neoplasm of skin of right upper eyelid, including canthus
CPT/HCPCS: 11440 ×2; 88305; A9270; J0690; J1100; J2405; J2704; J7120

== ENCOUNTER → 2022-06-14 08:17 | Outpatient (CLI) | payer BC, SELFPAY ==
--- NOTE | ~2022-06-14 | US_ITS ---
Abdominal Sonogram: Real-time sonographic imaging of the abdomen was performed. Clinical History: Thrombocytopenia Findings: The liver appears heterogeneous, with no evidence of mass lesion or bile duct dilatation. Main portal vein demonstrates normal direction of flow. The spleen is normal in size without evidence of focal lesion. The gallbladder is absent, compatible prior cholecystectomy. The common bile duct measures 7 mm. The visualized pancreas, aorta, and IVC are unremarkable. The right kidney measures 10.7 cm in length and the left kidney measures 12.4 cm. There is no hydronephrosis or renal calculus . Impression: Heterogeneous hepatic echotexture suggests diffuse fatty infiltration, versus possibly other chronic liver disease. Correlate clinically. Borderline dilatation of common bile duct, presumably related to prior cholecystectomy. Reviewed, dictated and finalized at location . Impression: Heterogeneous hepatic echotexture suggests diffuse fatty infiltration, versus p ossibly other chronic liver disease. Correlate clinically. Borderline dilatation of common bile duct, presumably related to prior cholecys tectomy.
== END ==
PROVIDERS: PCP Internal Medicine; Visit Provider Internal Medicine Hematology & Oncology
DX: D69.59 Other secondary thrombocytopenia (principal)
CPT/HCPCS: 76700

== ENCOUNTER 2022-09-13 14:00 | Outpatient (RCR) | payer BC, SELFPAY ==
--- NOTE | 2022-08-25 15:33 | PTOPEVAL1 ---
Assessment and note entered by Ligia Gage, PT Evaluation Information Assessment Status Evaluation Diagnosis L lower quadrant pain Onset Dec 2021 Subjective Information onset with lifting in December last year; pain went away, then reinjured with lifting again recently; was carrying catering bags, one in each hand and walking; have been doing some stretches found on line: stretching hip in standing and supine positions; Reported Pain Level Pain Score Self Report Additional Pain Score Comments pain in R medial thigh: 1-9/10; sharp, hurts; always have a little soreness or something in thigh increase with carrying and after driving decrease pain: moving/walking, change position; Assessment PT Clinical Summary Marco A has the diagnosis of L lower quadrant pain, onset with lifting and carrying with working, items in both R and L hands. With the evaluation: he does not have any pain with palpation over L thigh--stated having a good day today; with flexibility, his L hip and knee are slightly more flexible due to previous R ALC repair; mat strength is good, but in standing, has decrease stability and strength of ankle and hips/trunk; poor positioning of his ankles with flat feet and calcaneal eversion; Skilled PT services are indicated to decrease pain R inner thigh, increase LE alignment and static standing balance and strength/stability to hips and knees; education for home exercises and position with dynamic activity of walking and carrying in both hands. Use of modalities PRN with monitoring L thigh pain with activity. Plan of Care Interventions Electrical Stimulation,Hot Pack/Cold Pack,Manual Therapy,Neuro Re-education,Patient Education,Therapeutic Activities,Therapeutic Exercise,Ultrasound,Other Other Interventions taping, IASONEAL PT Services Indicated Yes Treatment Frequency and 0-1x/wk for 4 weeks Duration These treatments will address the objective and functional deficits as defined above. The patient will be advanced safely and appropriately in order for the patient to progress towards his/her prior level of function. Additional exercises will be introduced and as well as a comprehensive home exercise program upon discharge, if needed, ?to ensure carryover of functional gains achieved in the clinic. This treatm
--- NOTE | 2022-08-25 15:34 | OPREHPOC ---
Outpatient Therapy Plan of Care This is a Multidisciplinary Plan of Care that may contain components documented by all disciplines (PT, OT, and ST.) PT Problem 1 PT Problem #1 Knowledge Deficit PT Goal 1 Goal 1* indep with HEP 2* good knowledge of posture and standing position PT Problem 2 PT Problem #2 Pain PT Goal 1 Goal 1* pt report pain 4/10 at worst in L thigh PT Problem 3 PT Problem #3 Impaired Strength PT Goal 1 Goal pt perform with good stability and balance, L LE: 1* standing single leg PF x 10 reps 2* step ups onto 6 step x 20 reps 3* single leg standing x 20 seconds 4* ankle circles x 20 reps in sitting 5* pt perform one hand carry 50# and walking 150' without any issues
--- NOTE | 2022-08-31 10:52 | PCPTNOTE ---
Patient cancelled 08/30/22 appointment stating that he had a lot of work thrown at him at the last minute and would not be able to make it in.
--- NOTE | 2022-09-07 08:13 | PCPTNOTE ---
Pt. did not show for appointment on 09/06/22. Spoke with pt. and he said he was unaware of his appointment. Entire scheduling system was down and told pt. lead front desk agent staff would call and reschedule when system was back up and running. Entered on 09/07/22 due to servers being down as noted.
--- NOTE | 2022-09-13 14:24 | PCPTNOTE ---
Called and left pt. voicemail about missing today's (09/13/22) appointment. Asked pt. to return call and let us know if he would be returning for therapy as he was due for re-evaluation next week but had not attended since his initial evaluation.
--- NOTE | 2022-09-21 15:12 | PTOPDC ---
Assessment and note entered by Ligia Gage, PT Evaluation Information Assessment Status Discharge - Pt Not Present Diagnosis L lower quadrant pain Onset Dec 2021 Assessment PT Clinical Summary Marco A has received the PT evaluation, then had 1 canceled and 2 no show appointments. When he was called to confirm his reevaluation appt, he canceled it and said he did not need anymore therapy. Goals were not addressed. Discharge PT. Plan of Care PT Services Indicated No
== END 2022-09-22 13:05 | disposition home or self-care (01) ==
LOC: ANHPT 14:00
PROVIDERS: PCP Internal Medicine; Visit Provider Nurse Practitioner
DX: R10.32 Left lower quadrant pain (principal)
CPT/HCPCS: 97110; 97161; 99199

== ENCOUNTER 2023-01-04 14:43 | Outpatient (CLI) | payer BC, SELFPAY ==
[2023-01-04 14:59] LABS: Basophils Percent Auto 0.5 % (0.2-1.2); Eosinophils Absolute Auto 0.1 K/mm3 (0-0.3); Eosinophils Percent Auto 1.2 % (0-4.4); Hematocrit 48.2 % (42.0-52.0); Hemoglobin 16.6 g/dL (14.0-18.0); Immature Granulocyte Absolute 0.02 K/mm3 (0.00-0.031); Immature Granulocyte Percent A 0.3 % (0-0.5); Immature Platelet Fraction Pct 3.2 % (0.9-11.2); Lymphocytes Absolute Auto 1.27 K/mm3 (0.9-3.2); Mean Corpuscular HGB Conc 34.4 g/dl (32-36); Mean Corpuscular Hemoglobin 31.5 pg (26-34); Mean Corpuscular Volume 91.5 fl (80-100); Mean Platelet Volume 9.9 fl (7.4-10.4); Monocytes Absolute Auto 0.5 K/mm3 (0.1-0.6); Monocytes Percent Auto 7.8 % (2.6-8.5); Neutrophils Absolute Auto 4.2 K/mm3 (1.3-6.7); Neutrophils Percent Auto 69.2 % (45.5-73.1); Platelet Count Result 134 k/mm3 (150-375); Red Blood Count 5.27 M/mm3 (4.6-6.20); White Blood Count 6.1 K/mm3 (4.5-10.0)
[2023-01-04 15:00] LABS: Blood Urea Nitrogen 15 mg/dL (8-26); Carbon Dioxide 25 mmol/L (22-30); Chloride 99 mmol/L (98-109); Estimated Glomerular Filt Rate > 60; Glucose 91 mg/dL (70-105); Ionized Calcium (POC) 1.25 mmol/L (1.11-1.31); Potassium 4.5 mmol/L (3.5-4.9); Sodium 138 mmol/L (138-146)
[2023-01-04 18:56] LABS: Iron 125 ug/dL (49-181)
[2023-01-04 18:59] LABS: Alanine Aminotransferase 54 U/L (6-50); Albumin Level 4.6 g/dL (3.5-5.1); Alkaline Phosphatase 70 U/L (38-126); Anion Gap 10 mmol/L (8-16); Aspartate Amino Transferase 43 U/L (17-59); Bilirubin,Total 0.9 mg/dL (0.2-1.3); Blood Urea Nitrogen 15 mg/dL (9-20); Calcium 10.3 mg/dL (8.4-10.2); Carbon Dioxide 25 mmol/L (22-30); Chloride 100 mmol/L (98-107); Estimated Glomerular Filt Rate > 60; Glucose 91 mg/dL (65-110); Potassium 4.5 mmol/L (3.4-5.0); Sodium 135 mmol/L (137-145)
[2023-01-04 19:27] LABS: Percent Iron Saturation 44 % (20-50)
== END 2023-01-04 14:44 | disposition home or self-care (01) ==
LOC: ANHLAB 14:45
PROVIDERS: PCP Internal Medicine; Visit Provider Internal Medicine Hematology & Oncology
DX: D69.59 Other secondary thrombocytopenia (principal)
CPT/HCPCS: 36415; 80047; 80053; 82728; 83540; 83550; 85025; 85055

== ENCOUNTER 2023-05-01 13:57 | Outpatient (CLI) | payer BC, SELFPAY ==
[2023-05-01 14:46] LABS: Alanine Aminotransferase 45 U/L (6-50); Albumin Level 4.4 g/dL (3.5-5.1); Alkaline Phosphatase 81 U/L (38-126); Anion Gap 4 mmol/L (8-16); Aspartate Amino Transferase 37 U/L (17-59); Bilirubin,Total 1.1 mg/dL (0.2-1.3); Blood Urea Nitrogen 16 mg/dL (9-20); Calcium 9.8 mg/dL (8.4-10.2); Carbon Dioxide 29 mmol/L (22-30); Chloride 98 mmol/L (98-107); Cholesterol 190 mg/dL (0-200); Estimated Glomerular Filt Rate > 60; Glucose 99 mg/dL (65-110); HDL Direct 95 mg/dL; Potassium 4.8 mmol/L (3.4-5.0); Sodium 131 mmol/L (137-145); Triglycerides 147 mg/dL (<150)
[2023-05-01 14:57] LABS: LDL Cholesterol Direct 84 mg/dL
[2023-05-01 15:16] LABS: Prostate Specific Antigen 5.5 ng/mL (< OR = 4.0)
== END 2023-05-01 13:58 | disposition home or self-care (01) ==
PROVIDERS: PCP Internal Medicine; Visit Provider Nurse Practitioner
DX: C61 Malignant neoplasm of prostate (principal); E78.5 Hyperlipidemia, unspecified
CPT/HCPCS: 36415; 80053; 80061; 84153

== ENCOUNTER 2023-07-09 14:26 | Outpatient (CLI) | payer BC, SELFPAY ==
[2023-07-09 14:44] LABS: Basophils Percent Auto 0.7 % (0.2-1.2); Eosinophils Absolute Auto 0.1 K/mm3 (0-0.3); Hematocrit 47.9 % (42.0-52.0); Hemoglobin 16.6 g/dL (14.0-18.0); Immature Granulocyte Absolute 0.02 K/mm3 (0.00-0.031); Immature Granulocyte Percent A 0.4 % (0-0.5); Immature Platelet Fraction Pct 4.2 % (0.9-11.2); Lymphocytes Absolute Auto 1.55 K/mm3 (0.9-3.2); Lymphocytes Percent Auto 27.5 % (18.3-44.2); Mean Corpuscular HGB Conc 34.7 g/dl (32-36); Mean Corpuscular Hemoglobin 31.9 pg (26-34); Mean Corpuscular Volume 92.1 fl (80-100); Mean Platelet Volume 9.6 fl (7.4-10.4); Monocytes Absolute Auto 0.6 K/mm3 (0.1-0.6); Monocytes Percent Auto 10.1 % (2.6-8.5); Neutrophils Absolute Auto 3.3 K/mm3 (1.3-6.7); Neutrophils Percent Auto 59.3 % (45.5-73.1); Platelet Count Result 102 k/mm3 (150-375); Red Cell Distribution Width 12.1 % (11.5-14.5); White Blood Count 5.6 K/mm3 (4.5-10.0)
[2023-07-09 21:25] LABS: Iron 113 ug/dL (49-181)
[2023-07-09 21:35] LABS: Percent Iron Saturation 37 % (20-50)
[2023-07-09 21:38] LABS: Alanine Aminotransferase 49 U/L (6-50); Albumin Level 4.5 g/dL (3.5-5.1); Alkaline Phosphatase 75 U/L (38-126); Anion Gap 5 mmol/L (4-12); Aspartate Amino Transferase 38 U/L (17-59); Bilirubin,Total 0.9 mg/dL (0.2-1.3); Blood Urea Nitrogen 15 mg/dL (9-20); Carbon Dioxide 29 mmol/L (22-30); Chloride 100 mmol/L (98-107); Estimated Glomerular Filt Rate > 60; Glucose 97 mg/dL (65-110); Potassium 4.3 mmol/L (3.4-5.0); Sodium 134 mmol/L (137-145)
== END 2023-07-09 14:27 | disposition home or self-care (01) ==
LOC: ANHLAB 14:27
PROVIDERS: PCP Internal Medicine; Visit Provider Internal Medicine Hematology & Oncology
DX: R79.89 Other specified abnormal findings of blood chemistry (principal); D69.59 Other secondary thrombocytopenia
CPT/HCPCS: 36415; 80053; 82728; 83540; 83550; 85025; 85055

== ENCOUNTER 2024-01-11 17:03 | Outpatient (CLI) | payer BC, SELFPAY ==
[2024-01-11 17:26] LABS: Basophils Percent Auto 0.6 % (0.2-1.2); Eosinophils Absolute Auto 0.1 K/mm3 (0-0.3); Eosinophils Percent Auto 1.7 % (0-4.4); Hematocrit 48.5 % (42.0-52.0); Hemoglobin 16.7 g/dL (14.0-18.0); Immature Granulocyte Absolute 0.01 K/mm3 (0.00-0.031); Immature Granulocyte Percent A 0.2 % (0-0.5); Immature Platelet Fraction Pct 3.2 % (0.9-11.2); Lymphocytes Absolute Auto 1.37 K/mm3 (0.9-3.2); Lymphocytes Percent Auto 26.2 % (18.3-44.2); Mean Corpuscular HGB Conc 34.4 g/dl (32-36); Mean Corpuscular Hemoglobin 32.4 pg (26-34); Mean Corpuscular Volume 94.2 fl (80-100); Mean Platelet Volume 9.5 fl (7.4-10.4); Monocytes Absolute Auto 0.4 K/mm3 (0.1-0.6); Monocytes Percent Auto 7.5 % (2.6-8.5); Neutrophils Absolute Auto 3.3 K/mm3 (1.3-6.7); Neutrophils Percent Auto 63.8 % (45.5-73.1); Platelet Count Result 110 k/mm3 (150-375); Red Blood Count 5.15 M/mm3 (4.6-6.20); Red Cell Distribution Width 12.5 % (11.5-14.5); White Blood Count 5.2 K/mm3 (4.5-10.0)
[2024-01-11 17:35] LABS: Alanine Aminotransferase 54 U/L (6-50); Albumin Level 4.9 g/dL (3.5-5.1); Alkaline Phosphatase 73 U/L (38-126); Anion Gap 6 mmol/L (4-12); Aspartate Amino Transferase 45 U/L (17-59); Blood Urea Nitrogen 12 mg/dL (9-20); Calcium 9.9 mg/dL (8.4-10.2); Carbon Dioxide 31 mmol/L (22-30); Chloride 98 mmol/L (98-107); Estimated Glomerular Filt Rate > 60; Glucose 94 mg/dL (65-110); Potassium 4.4 mmol/L (3.4-5.0); Sodium 135 mmol/L (137-145)
[2024-01-11 17:51] LABS: Iron 127 ug/dL (49-181)
[2024-01-11 18:00] LABS: Percent Iron Saturation 45 % (20-50)
== END 2024-01-11 17:04 | disposition home or self-care (01) ==
PROVIDERS: PCP Internal Medicine; Visit Provider Internal Medicine Hematology & Oncology
DX: D69.59 Other secondary thrombocytopenia (principal); R79.89 Other specified abnormal findings of blood chemistry
CPT/HCPCS: 36415; 80053; 82728; 83540; 83550; 85025; 85055

== ENCOUNTER 2024-09-18 15:22 | Outpatient (CLI) | payer BC, SELFPAY ==
[2024-09-18 16:35] LABS: Prostate Specific Antigen 1.1 ng/mL (< OR = 4.0)
== END 2024-09-18 15:23 | disposition home or self-care (01) ==
PROVIDERS: PCP Internal Medicine
DX: C61 Malignant neoplasm of prostate (principal)
CPT/HCPCS: 36415; 84153; 84403; G0103

== ENCOUNTER 2024-10-11 13:41 | Outpatient (CLI) | payer BC, SELFPAY ==
--- OUTSIDE RECORDS SUMMARY | 2024-10-11 13:45 | XMS_ITS | Clinical Summary ---
Author Organization [facility]el [facility]il Address [address] [place] [address] Care Team Providers Care Computer Systems Integrator Name Role Phone Christiano Pop DO Primary Care Provider Allergies No known active allergies Medications atorvastatin (LIPITOR) 10 mg tablet Take 10 mg by mouth daily. Active lisinopriL (PRINIVIL) 10 mg tablet Take 10 mg by mouth daily. Active ALPRAZolam (XANAX) 0.5 mg tablet Take 0.5 mg by mouth nightly as needed for Anxiety. Active multivitamins-m inerals-lutein (Multivitamin 50 Plus) Tablet Take 1 Tablet by mouth daily. Active pyridoxine (VITAMIN B6) 100 mg Tablet Take 50 mg by mouth daily. Active esomeprazole (NexIUM) 20 mg Capsule, Delayed Release(E.C.) Take 20 mg by mouth daily before breakfast. Active Active Problems No known active problems Encounters Date Type Department Care Team Description 10/08/2024 External Device Data ST[facility] ABSTRACTION Provider, Abstract 09/10/2024 External Device Data [facility] ABSTRACTION Provider, Abstract from Last 3 Months Family History Medical History Relation Name Comments No Known Problems Brother Cancer Father Heart Disease Father No Known Problems Mother No Known Problems Son Relation Name Status Comments Brother Alive Father Mother Son Alive Social History Tobacco Use Types Packs/Day Years Used Date Smoking Tobacco: Never Smokeless Tobacco: Never Tobacco Cessation:Counseling Given: Not Answered Alcohol Use Standard Drinks/Week Comments Yes 14 (1 standard drink = 0.6 oz pu re alcohol) Sex and Gender Information Value Date Recorded Sex Assigned at Not on file 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 Gender Identity Not on file Sexual Orientation Not on file Last Filed Vital Signs Vital Sign Reading Time Taken Comments Blood Pressure 125/91 01/14/2024 1:03 PM CDT Pulse 96 01/14/2024 1:02 PM CDT Temperature 36.7 C (98 F) 01/14/2024 1:02 PM CDT Respiratory Rate 16 01/14/2024 1:02 PM CDT Oxygen Saturation 96% 01/14/2024 1:02 PM CDT Inhaled Oxygen Concentration - - Weight 90.6 kg (199 lb 12.8 oz) 01/14/2024 1:02 PM CDT Height 155.8 cm (5' 1.32) 06/05/2022 2:52 PM CD T Body Mass Index 37.36 06/05/2022 2:52 PM CDT Plan of Treatment Upcoming Encounters Date Type Department Care Team (Late st Contact Info) Description 10/13/2024 1:15 PM CDT Office Visit [facility] Oncology and Hemat[facility] [address] [facility] [address] [place] [address] Mandeep Arnett MD [address] [facility] [address] [place] [address] Health Maintenance Due Date Last Done Comments Pre-Diabetes and Diabetes Screening 1961 DTAP/TDAP/TD VACCINES (1 - Tdap) 1980 COLORECTAL SCREENING 2006 Colorectal Cancer Screening 2006 FIT-DNA Q 3 years 2006 FIT/FOBT Q 1 year 2006 Flex Sig/CT Colonography Q 5 years 2006 ZOSTER VACCINE (1 of 2) 2011 Preventative Visit- Commercial 03/26/2024 INFLUENZA VACCINE (#1) 2024 RSV VACCINE (60+ or ) (1 - 1-dose 75+ series) 2036 Insurance [employer] BLUE PREFERRED [facility] PREFERRED Care Teams Computer Systems Integrator Relationship Specialty Start Date End Date Christiano Pop DO [address] [address] PCP - General Internal Medicine 01/14/24
--- OUTSIDE RECORDS SUMMARY | 2024-10-11 13:45 | XMS_ITS | Encounter Summary ---
Author Organization [facility] Address [address] [place] [address] Care Team Providers Care Crosscutter Name Role Phone Christiano Pop DO Primary Care Provider [phone] Encounter Details Date Type Department Care Team (Late st Contact Info) Description 09/20/2019 Lab Requisition [facility] MICROBIOLOGY [address] [place] [address] Vasquez Mello MD [address] [place] [address] Cough Social History Tobacco Use Types Packs/Day Years Used Date Smoking Tobacco: Never Smokeless Tobacco: Never Alcohol Use Standard Drinks/Week Comments No 0 (1 standard drink = 0.6 oz pur e alcohol) Sex and Gender Information Value Date Recorded Sex Assigned at Not on file Legal Sex Male 4:28 PM CDT Gender Identity Not on file Sexual Orientation Not on file COVID-19 Exposure Response Date Recorded In the last month, have you been in contact with someone who was confirmed or suspected to have Coronavirus / COVID-19? No / Unsure 09/17/2019 12:14 PM CDT documented as of this encounter Plan of Treatment Not on file documented as of this encounter Procedures Procedure Name Priority Date/Time Associated Diagnosis Comments SARS-COV-2 (COVID-19) IN HOUSE Routine 09/19/2019 2:48 PM CDT Cough documented in this encounter Results * SARS-COV-2 (COVID-19) IN HOUSE (09/19/2019 2:48 PM CDT) COVID-19 PCR Not detected Not detected, Invalid 09/20/2019 9:56 PM CDT [facility] MICROBIOLOGY Microbiology SPECIMEN FROM NASOPHARYNGEAL STRUCTURE / Unknown Collection / Unknown 09/19/2019 2:48 PM CDT 09/20/2019 12:02 PM CDT Narrative [facility]CRO[facility] - 09/20/2019 9:56 PM CDT This Real Time RT-PCR assay was developed and its performance characteristics determined by [facility]. This test has been authorized by the Food and Drug administration (FDA)under an Emergency Use Authorization (EUA). This test has been validated in accordance with the FDA's guidance document Policy for Diagnostic Testing in Laboratories Certified to perform High Complexity Testing under CLIA prior to Emergency Use Authorization for Coronavirus Disease-2019 during the Public Health Emergency issued on May 24, 2019. FDA independent review of this validation is pending. This test is only authorized for the duration of time the declaration that circumstances exist justifying the authorization of emergency use of in vitro diagnostic tests for detection of SARS-CoV-2 virus and/or diagnosis of COVID-19 infection under section 564(b)(1) of the Act, 21 U.S.C 360bbb-3 (b)(1), unless the authorization is terminated or revoked sooner. Vasquez Mello MD LAB - MICROBIOLOGY ORDERABL ES Final Result [facility]CROBIOLOGY [address] [place] [address], [facility] [phone] documented in this encounter Visit Diagnoses Diagnosis Cough documented in this encounter Additional Health Concerns Infection Onset Date Last Indicated Resolved Time COVID-19 Under Investigation 09/20/2019 09/19/2019 09/20/2019 9:56 PM CDT documented as of this encounter Care Teams Crosscutter Relationship Specialty Start Date End Date Christiano Pop DO PCP - General 06/26/22 documented as of this encounter
--- OUTSIDE RECORDS SUMMARY | 2024-10-11 13:45 | XMS_ITS | Clinical Summary ---
Author Organization [facility] [employer] Address [address] [place] [address] Care Team Providers Care Director Of Medical Review Name Role Phone Christiano Pop DO Primary Care Provider [phone] Source Comments [facility] [employer],non-owned Affiliates and Associated Physician Practices is amultiple site organization consisting of ambulatory clinics and hospital sitesin [place], [place], [place] and [place]. This disclosure is being madepursuant to the Care Everywhere program and may not contain all information available regarding this patient. Last updated 17.[facility] [employer] Allergies No known active allergies Medications * Be aware that medications may not be up to date on this document. Alwaysverify current medications with the patient. melatonin 1 MG tablet Take 1 mg by mouth at bedtime Active ALPRAZolam (XANAX XR PO) Active Immunizations Immunization Administration Dates Next Due HEP A VACCINE, ADULT 03/29/2019 Family History Medical History Relation Name Comments Cancer - Other Father Dementia Mother Parkinson's Disease Mother Asthma Neg Hx Autoimmune Disease Neg Hx Bipolar Disorder Neg Hx Cancer - Breast Neg Hx Cancer - Colon Neg Hx Cancer - Ovarian Neg Hx Cancer - Pancreatic Neg Hx Cancer - Prostate Neg Hx Depression Neg Hx Eczema Neg Hx Hypertension Neg Hx Migraine Neg Hx Osteoporosis Neg Hx Seizures Neg Hx Sudd. <30 Neg Hx Thyroid Disease Neg Hx Ulcerative Colitis Neg Hx Relation Name Status Comments Father Mother Social History Tobacco Use Types Packs/Day Years Used Date Smoking Tobacco: Never Smokeless Tobacco: Never Tobacco Cessation:Counseling Given: No Alcohol Use Standard Drinks/Week Comments No 0 (1 standard drink = 0.6 oz pur e alcohol) Sex and Gender Information Value Date Recorded Sex Assigned at Not on file Legal Sex Male 4:28 PM CDT Gender Identity Not on file Sexual Orientation Not on file Last Filed Vital Signs Vital Sign Reading Time Taken Comments Blood Pressure 138/80 09/17/2019 2:37 PM CDT Pulse 90 09/17/2019 2:37 PM CDT Temperature 36.7 C (98 F) 09/17/2019 2:37 PM CDT Respiratory Rate 20 09/17/2019 2:37 PM CDT Oxygen Saturation 97% 05/11/2019 9:33 AM RUNWAY MODEL Inhaled Oxygen Concentration - - Weight 93 kg (205 lb) 05/11/2019 9:33 AM RUNWAY MODEL Height 180.3 cm (5' 11) 05/11/2019 9:33 AM RUNWAY MODEL Body Mass Index 28.59 05/11/2019 9:33 AM RUNWAY MODEL Plan of Treatment Health Maintenance Due Date Last Done Comments COLOGUARD (AGES 45-75) - COL ON CA SCREENING 1961 COLON MONITORING 1961 COLONOSCOPY - COLON CA SCREENING 1961 CT COLONOGRAPHY - COLON CA SCREENING 1961 Colorectal Cancer Screening 1961 FIT - COLON CA SCREENING 1961 FLEX SIG - COLON CA SCREENING 1961 LIPID TESTING 1961 HIV SCREENING 1976 HEPATITIS C SCREENING 04/18/1979 DTAP/TDAP/TD VACCINES (1 - Tdap) 1980 PNEUMOCOCCAL VACCINE 50+ (1 of 1 - PCV) 2011 ZOSTER VACCINE (1 of 2) 2011 SCREENING FOR DIABETES 06/28/2018 HEPATITIS A VACCINE (2 of 2 - Risk 2-dose series) 09/27/2019 03/29/2019 COVID-19 VACCINE ( - 2023-2 5 season) 2023 DEPRESSION SCREENING 03/26/2024 INFLUENZA VACCINE (#1) 2024 Respiratory Syncytial Virus (RSV) Vaccine Pt: or over 60 yrs (1 - 1-dose 75+ series) 2036 HEPATITIS B VACCINE Aged Out No longe r eligible based on patient's age to complete this topic HIB VACCINE Aged Out No longer eligi ble based on patient's age to complete this topic HPV VACCINE Aged Out No longer eligi ble based on patient's age to complete this topic MENINGOCOCCAL (Group B) VACC INE SHARED DECISION-MAKING Aged Out No longer eligibl e based on patient's age to complete this topic MENINGOCOCCAL GROUPS A/C/Y/W VACCINE Aged Out No longer eligible b ased on patient's age to complete this topic Insurance ANTHEM ANTHEM Care Teams Director Of Medical Review Relationship Specialty Start Date End Date Christiano Pop DO PCP - General 06/26/22
--- OUTSIDE RECORDS SUMMARY | 2024-10-11 13:45 | XMS_ITS | Encounter Summary ---
Author Organization [facility] Address 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 [place] [address] Mandeep Arnett MD [address] [facility] [address] [place] [address] documented as of this encounter Visit Diagnoses Diagnosis Other causes of encephalitis, myelitis, and encephalomyelitis- Primary documented in this encounter Care Teams Project Manager Retail Relationship Specialty Start Date End Date Christiano Pop DO [address] [facility] [address] [place] [address] PCP - General Internal Medicine 01/14/24 documented as of this encounter
--- OUTSIDE RECORDS SUMMARY | 2024-10-11 13:45 | XMS_ITS | Clinical Summary ---
Author Organization [facility] Address [address] [place] [address] Care Team Providers Care Editorial Director Name Role Phone Christiano Pop DO Primary Care Provider +- [phone] Vamsi Beasley MD Unavailable [phone] Allergies No known active allergies Medications lisinopriL (PRINIVIL,ZESTR IL) 10 mg tabletIndicatio ns:hypertension Take 1 tablet (10 mg total) by mouth every morning Active ALPRAZolam (XANAX) 0.5 mg tablet Take 1 tablet (0.5 mg total) by mouth daily as needed for anxiety 08/30/2022 Active atorvastatin (LIPITOR) 10 mg tabletIndicatio ns:hyperlipidem ia Take 1 tablet (10 mg total) by mouth every morning 06/24/2022 Active hydrOXYzine (ATARAX) 50 mg tabletIndicatio ns:sleep Take 1 tablet (50 mg total) by mouth nightly as needed for anxiety 08/11/2022 Active melatonin tabletIndicatio ns:sleep Take 10 tablets (10 mg total) by mouth nightly Active pyridoxine (VITAMIN B-6) 100 mg tabletIndicatio ns:supplement Take 0.5 tablets (50 mg total) by mouth every morning Active cyanocobalamin (Vitamin B-12) 1,000 mcg tabletIndicatio ns:Prevention of Vitamin B12 Deficiency Take 1 tablet (1,000 mcg total) by mouth every morning Active Active Problems Problem Noted Date Diagnosed Date Prostate cancer 10/17/2022 Cancer Staging:Clinical stage from 09/15/2022:Stage IIB(cT1c, cN0, cM0, PSA: 5.3, Grade Group: 2) - Signed by Vamsi Beasley MD on 10/17/2022 Elevated PSA 09/06/2022 Colitis 07/03/2021 Encounters Date Type Department Care Team Description 09/23/2024 2:00 PM CDT Office Visit [facility] Radiation Oncology [address] [place] [address] Kristin Samuel NP Prostate cancer (HCC) (Primary Dx) 09/16/2024 Orders Only [facility] Radiation Oncology [address] [place] [address] Kristin Samuel NP Prostate cancer (HCC) (Primary Dx) from Last 3 Months Surgical History Surgery Date Site/Laterality Comments CHOLECYSTECTOMY 03/26/2019 - 03/25/2020 COLONOSCOPY 03/26/2021 - 03/25/2022 KNEE ARTHROSCOPY W/ ACL RECONSTRUCTION 03/26/1981 - 03/25/1982 Right EYE SURGERY 04/26/2022 - 05/23/2022 Right eyelid surgery - cyst removed Medical History Medical History Date Comments HTN (hypertension) Hyperlipemia Anxiety Depression Prostate cancer (HCC) Family History Medical History Relation Name Comments Heart disease Father Pancreatic cancer Father Anesthesia problems Neg Hx Malig Hypertension Neg Hx Malig Hyperthermia Neg Hx Pseudochol deficiency Neg Hx Relation Name Status Comments Father Social History Tobacco Use Types Packs/Day Years Used Date Smoking Tobacco: Never Smokeless Tobacco: Never Tobacco Cessation:Counseling Given: Not Answered AUDIT-C Answer Date Recorded Q1: How often do you have a drink containing alcohol? 4 or more times a week 01/15/2024 Q2: How many drinks containi ng alcohol do you have on a typical day when you are drinking? 1 or 2 Q3: How often do you have si x or more drinks on one occasion? Less than monthly 01/15/2024 Personal Safety Answer Date Recorded Have you ever been in or are you currently in a harmful physical or emotional relationship or is someone making you feel afraid or unsafe? Denies 11/22/2023 Sex and Gender Information Value Date Recorded Sex Assigned at Not on file Legal Sex Male 12:30 PM MINIATURE SET BUILDER Gender Identity Male 03/29/2022 5:09 PM MINIATURE SET BUILDER Sexual Orientation Straight 03/29/2022 5: 09 PM MINIATURE SET BUILDER Obstetrics History Last Filed Vital Signs Vital Sign Reading Time Taken Comments Blood Pressure 123/77 03/05/2024 10:49 AM MINIATURE SET BUILDER Pulse 73 03/05/2024 10:49 AM MINIATURE SET BUILDER Temperature 36.8 C (98.3 F) 01/15/2024 1:51 PM CDT Respiratory Rate 16 03/05/2024 10:49 AM MINIATURE SET BUILDER Oxygen Saturation 100% 03/05/2024 10:49 AM MINIATURE SET BUILDER Inhaled Oxygen Concentration - - Weight 92.2 kg (203 lb 4.8 oz) 06/16/2024 2:55 P M CDT Height 180.3 cm (5' 11) 11/22/2023 11:29 AM CDT Body Mass Index 28.35 11/22/2023 11:29 AM CDT Plan of Treatment Health Maintenance Due Date Last Done Comments Colon Cancer Screening-Colonoscopy 1961 Depression Screening 1961 Hepatitis C Screening 1961 DTaP/Tdap/Td Vaccine (1 - Tdap) 1972 Hepatitis B Screening 1979 Regular Well Visit/Exam 18-64 1979 Pneumococcal vaccine <65 (1 of 2 - PCV) 1980 Zoster Vaccine (1 of 2) 1980 Covid-19 Vaccine (3 - season) 2023, 06/01/2020 Influenza Vaccine (#1) 2024 Prostate Cancer Screening-PSA 06/05/2026, 10/09/2023, 09/05/2022 Procedures Procedure Name Priority Date/Time Associated Diagnosis Comments PSA DIAGNOSTIC Routine 06/05/2024 1:48 PM CDT Prostate cancer (HCC) from Last 3 Months or Most Recently Relevant to Health Maintenance Results * PSA diagnostic (06/05/2024 1:48 PM CDT) PSA-Total 2.11 <=5.40 ng/mL Comment: Interpretive Data AGE SEX REFERENCE INTERVAL 0 minutes-150 years Female None 0 minutes-49 years Male None 50-59 years Male 0-3.90 60-69 years Male 0-5.40 70-79 years Male 0-6.20 80-150 years Male 0-6.20 The Domitila PSA Total assay procedure was used. Results from different manufacturers or methods may not be comparable. Serial testing should be performed using the same method. Current interpretive data last revised 21. Blood 06/05/2024 1:48 PM CDT 06/05/2024 2:08 PM CDT Vamsi Beasley MD LAB BLOOD ORDERABLES F inal Result [facility] Department [place] [address] from Last 3 Months or Most Recently Relevant to Health Maintenance [place] Care Teams Editorial Director Relationship Specialty Start Date End Date Christiano Pop DO PCP - General Internal Medicine 05/04/22 Vamsi Beasley MD [address] [facility] [address] [place] [address] Radiation Oncologist Radiation Oncology 10/17/22
--- OUTSIDE RECORDS SUMMARY | 2024-10-11 13:45 | XMS_ITS ---
Author Organization [facility] Address [address] [place] [address] Care Team Providers Care Dietitian Teaching Name Role Phone Christiano Pop DO Primary Care Provider +1- [phone] Vamsi Beasley MD Unavailable [phone] Active Problems Problem Noted Date Diagnosed Date Prostate cancer 10/17/2022 Cancer Staging:Clinical stage from 09/15/2022:Stage IIB(cT1c, cN0, cM0, PSA: 5.3, Grade Group: 2) - Signed by Vamsi Beasley MD on 10/17/2022 Elevated PSA 09/06/2022 Colitis 07/03/2021 Current Treatment and Therapy Plans No current plan information found. Past Treatment and Therapy Plans No past plan information found. Radiation Treatments * Course [id number]/[id number] - 04/11/2024 Treatment Period Energy Fraction Dose Fractions Total Dose Plans Planned PROSTATE SBRT 04/02/2024 - 04/11/2024 725 5 / 3,625 Reference Points Delivered [id number] 04/02/2024 - 04/11/2024 3,625
--- OUTSIDE RECORDS SUMMARY | 2024-10-11 13:45 | XMS_ITS | Referral Summary ---
Author Organization [facility] Address [address] [place] [address] Care Team Providers Care Antisubmarine Weapons Officer Name Role Phone Christiano Pop DO Primary Care Provider +1- [phone] Vamsi Beasley MD Unavailable [phone] Encounters Date Type Department Care Team Description 09/23/2024 2:00 PM CDT Office Visit [facility] Radiation Oncology [address] [place] [address] Kristin Samuel NP Prostate cancer (HCC) (Primary Dx) 09/16/2024 Orders Only [facility] Radiation Oncology [address] [place] [address] Kristin Samuel NP Prostate cancer (HCC) (Primary Dx) from Last 3 Months Allergies No known active allergies Medications lisinopriL [...] on 10/17/2022 Elevated PSA 09/06/2022 Colitis 07/03/2021 Social History Tobacco Use Types Packs/Day Years [...] on file Legal Sex Male 12:30 PM STACKER STRAIGHTENER Gender Identity Male 03/29/2022 5:09 PM STACKER STRAIGHTENER Sexual Orientation Straight 03/29/2022 5: 09 PM STACKER STRAIGHTENER Last Filed Vital Signs Vital Sign Reading Time Taken Comments Blood Pressure 123/77 03/05/2024 10:49 AM STACKER STRAIGHTENER Pulse 73 03/05/2024 10:49 AM STACKER STRAIGHTENER Temperature 36.8 C (98.3 F) 01/15/2024 1:51 PM CDT Respiratory Rate 16 03/05/2024 10:49 AM STACKER STRAIGHTENER Oxygen Saturation 100% 03/05/2024 10:49 AM STACKER STRAIGHTENER Inhaled Oxygen Concentration - - Weight 92.2 kg (203 lb 4.8 oz) 06/16/2024 2:55 P M CDT Height 180.3 cm (5' 11) 11/22/2023 11:29 AM CDT Body Mass Index 28.35 11/22/2023 11:29 AM CDT Plan of Treatment Not on file Procedures Procedure Name Priority Date/Time Associated Diagnosis [...] MD LAB BLOOD ORDERABLES F inal Result Performing Organization Address City/State/ZIP Co nm Phone Number [facility] Department [place] [address] from Last 3 Months or Most Recently Relevant to Health Maintenance Insurance [place] Subscriber Plan / Payer (Ef fective 2021-Present) Name:Marco A Guerrero Relation to Subscriber:Self Name:Marco A Guerrero Payer ID:[id number] (NAIC) Type:HEALTHCARE/EXCHANGE Address: [address] [place] Care Teams Antisubmarine Weapons Officer Relationship Specialty Start Date End Date Christiano Pop DO PCP - General Internal Medicine 05/04/22 Vamsi Beasley MD [address] [facility] [address] [place] [address] Radiation Oncologist Radiation Oncology 10/17/22
--- OUTSIDE RECORDS SUMMARY | 2024-10-11 13:45 | XMS_ITS | Encounter Summary ---
Author Organization [facility] Address [address] [place] [address] Care Team Providers Care Baseball Coach Name Role Phone Christiano Pop DO Primary Care Provider Encounter Details Date Type Department Care Team (Late st Contact Info) Description 11/19/2003 Outpatient [facility] Division of Neurology [address] [place] [address], [address] [place] [address] Christiano Felder MD [address] [place] [address] Social History Tobacco Use Types Packs/Day Years Used Date Smoking Tobacco: Never Assessed Sex and Gender Information Value Date Recorded Sex Assigned at Not on file Legal Sex Male 5:08 AM QUANTITATIVE SOFTWARE ENGINEER Gender Identity Not on file Sexual Orientation Not on file documented as of this encounter Plan of Treatment Upcoming Encounters Date Type Department Care Team (Late st Contact Info) Description 10/13/2024 1:15 PM CDT Office Visit [facility] Oncology and Hematology - [place] [address] [facility] [address] [place] [address] Mandeep Arnett MD [address] [facility] [address] [place] [address] documented as of this encounter Visit Diagnoses Not on filedocumented in this encounter Care Teams Baseball Coach Relationship Specialty Start Date End Date Christiano Pop DO [address] [facility] [address] [place] [address] PCP - General Internal Medicine 01/14/24 documented as of this encounter
[2024-10-11 14:02] LABS: Hematocrit 48.7 % (42.0-52.0); Hemoglobin 16.4 g/dL (14.0-18.0); Immature Granulocyte Percent A 0.4 % (0-0.5); Immature Platelet Fraction Pct 3.2 % (0.9-11.2); Lymphocytes Absolute Auto 1.23 K/mm3 (0.9-3.2); Mean Corpuscular HGB Conc 33.7 g/dl (32-36); Mean Corpuscular Hemoglobin 31.3 pg (26-34); Mean Corpuscular Volume 92.9 fl (80-100); Nucleated Red Blood Cells Absolute Auto 0.000 K/mm3 (0.0-0.012); Nucleated Red Blood Cells Perc 0.0 % (0.0-0.2); Platelet Count Result 110 k/mm3 (150-375); Red Blood Count 5.24 M/mm3 (4.6-6.20); White Blood Count 4.7 K/mm3 (4.5-10.0)
[2024-10-11 14:14] LABS: Iron 101 ug/dL (49-181)
[2024-10-11 14:21] LABS: Alanine Aminotransferase 38 U/L (6-50); Albumin Level 4.4 g/dL (3.5-5.1); Alkaline Phosphatase 55 U/L (38-126); Anion Gap 9 mmol/L (4-12); Aspartate Amino Transferase 41 U/L (17-59); Bilirubin,Total 0.7 mg/dL (0.2-1.3); Blood Urea Nitrogen 13 mg/dL (9-20); Calcium 9.7 mg/dL (8.4-10.2); Carbon Dioxide 25 mmol/L (22-30); Chloride 100 mmol/L (98-107); Estimated Glomerular Filt Rate > 60; Glucose 120 mg/dL (65-110); Potassium 4.2 mmol/L (3.4-5.0); Sodium 134 mmol/L (137-145); Total Protein 7.4 g/dL (6.3-8.2)
[2024-10-11 14:24] LABS: Percent Iron Saturation 37 % (20-50)
[2024-10-11 14:51] LABS: Ferritin 341.00 ng/mL (11.1-264)
== END 2024-10-11 13:42 | disposition home or self-care (01) ==
LOC: ANHLAB 13:44
PROVIDERS: PCP Internal Medicine; Visit Provider Internal Medicine Hematology & Oncology
DX: D69.59 Other secondary thrombocytopenia (principal)
CPT/HCPCS: 36415; 80053; 82728; 83540; 83550; 85025; 85055

== ENCOUNTER 2024-12-13 08:35 | Outpatient (CLI) | payer BC, SELFPAY ==
--- OUTSIDE RECORDS SUMMARY | 2024-12-13 08:41 | XMS_ITS | Clinical Summary ---
Author Organization [facility] Jamel Jamil Address [address] [place] [address] Care Team Providers Care Feeder Loader Name Role Phone Christiano Pop DO Primary [...] Encounters Date Type Department Care Team Description 11/12/2024 External Device Data STL ABSTRACTION Provider, Abstract 10/15/2024 Orders Only [facility] Oncology and Hematology - [place] [address] [place] [address] Mandeep Arnett MD 10/13/2024 1:15 PM CDT Office Visit [facility] Oncology and Hematology [facility] [address] [place] [address] Mandeep Arnett MD Other secondary thrombocytopenia (Primary Dx); Elevated ferritin 10/08/2024 External Device Data STL ABSTRACTION Provider, [...] on file Legal Sex Male 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 MOTOR MECHANIC Gender Identity Not on file Sexual Orientation Not on file Last Filed Vital Signs Vital Sign Reading Time Taken Comments Blood Pressure 99/72 10/13/2024 12:57 PM CDT Pulse 100 10/13/2024 12:57 PM CDT Temperature 36.8 C (98.2 F) 10/13/2024 12:57 PM CDT Respiratory Rate 16 10/13/2024 12:57 PM CDT Oxygen Saturation 96% 10/13/2024 12:57 PM CDT Inhaled Oxygen Concentration - - Weight 93.6 kg (206 lb 6.4 oz) 10/13/2024 12:57 PM CDT Height 155.8 cm (5' 1.32) 06/05/2022 2:52 PM CD T Body Mass Index 38.59 06/05/2022 2:52 PM CDT Plan of Treatment Upcoming Encounters Date Type Department Care Team (Late st Contact Info) Description 10/14/2025 1:15 PM CDT Office Visit [facility] Oncology and Hematology [facility] [address] [place] [address] [facility] [address] [place] [address] Mandeep Arnett MD [address] [facility] [address] [place] [address] Health Maintenance Due Date Last Done Comments Pre-Diabetes and Diabetes Screening 1961 DTAP/TDAP/TD VACCINES (1 - Tdap) 1980 COLORECTAL SCREENING 2006 Colorectal Cancer Screening 2006 FIT-DNA Q 3 years 2006 FIT/FOBT Q 1 year 2006 Flex Sig/CT Colonography Q 5 years 2006 ZOSTER VACCINE (1 of 2) 2011 INFLUENZA VACCINE (#1) 2024 RSV VACCINE (60+ or ) (1 - 1-dose 75+ series) 2036 Procedures Procedure Name Priority Date/Time Associated Diagnosis Comments COMPREHENSIVE METABOLIC PANEL Routine 10/11/2024 1:44 PM CDT from Last 3 Months Results * COMPREHENSIVE METABOLIC PANEL (10/11/2024 1:44 PM CDT) Blood us Mandeep Arnett MD CHEMISTRY ORDERABLES Final Resu lt from Last 3 Months Insurance PREFERRED [facility] PREFERRED Care Teams Feeder Loader Relationship Specialty Start Date End Date Christiano Pop DO [address] [address] PCP - General Internal Medicine 01/14/24
--- OUTSIDE RECORDS SUMMARY | 2024-12-13 08:41 | XMS_ITS ---
Author Organization [facility] Address [address] [place] [address] Care Team Providers Care Bobbin Coil Winder Name Role Phone Christiano Pop DO Primary Care Provider +1- [phone] Vamsi Beasley MD Unavailable [phone] Active Problems Problem Noted Date Diagnosed Date [...]
--- OUTSIDE RECORDS SUMMARY | 2024-12-13 08:41 | XMS_ITS | Encounter Summary ---
Author Organization [facility] Address [address] [place] [address] Care Team Providers Care Teacher Of The Deaf/Hard Of Hearing Name Role Phone Christiano Pop DO Primary Care Provider Encounter Details Date Type Department Care Team (Late st Contact Info) Description 11/18/2003 Inpatient Historical HIS PATIENT IN A BED [facility], [place] [address] [facility] [address] [place] [address] ENCEPHALITIS NEC (Primary Dx) Social History Tobacco Use Types Packs/Day Years Used Date Smoking Tobacco: Never Assessed Sex and Gender Information Value Date Recorded Sex Assigned at Not on file Legal Sex Male 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 Oncology and Hematology - [place] [address] [facility] [address] [place] [address] Mandeep Arnett MD [address] [facility] [address] [place] [address] documented as of this encounter Visit Diagnoses Diagnosis Other causes of encephalitis, myelitis, and encephalomyelitis- Primary documented in this encounter Care Teams Teacher Of The Deaf/Hard Of Hearing Relationship Specialty Start Date End Date Christiano Pop DO [address] [facility] [address] [place] [address] PCP - General Internal Medicine 01/14/24 documented as of this encounter
--- OUTSIDE RECORDS SUMMARY | 2024-12-13 08:41 | XMS_ITS | Encounter Summary ---
Author Organization [facility] Address [address] [facility] [place] [address] Care Team Providers Care Enrollment Nurse Name Role Phone Christiano Pop DO Primary Care Provider [phone] Encounter Details Date Type Department Care Team (Late st Contact Info) Description 09/20/2019 Lab Requisition [facility] MICROBIOLOGY [address] [place] [address] Vasquez Mello MD [address] [place] [address] Cough Social History Tobacco Use [...] Not detected, Invalid 09/20/2019 9:56 PM CDT [facility] MICROBIOLOGY Microbiology SPECIMEN FROM NASOPHARYNGEAL STRUCTURE / Unknown Collection / Unknown 09/19/2019 2:48 PM CDT 09/20/2019 12:02 PM CDT Narrative [facility] MICROBIOLOGY - 09/20/2019 9:56 PM CDT This Real Time RT-PCR assay was developed and its performance characteristics determined by [facility] Microbiology [facility]. This test has been authorized [...] LAB - MICROBIOLOGY ORDERABL ES Final Result [facility] MICROBIOLOGY [address] [place] [address], [facility] [phone] documented in this encounter Visit Diagnoses Diagnosis Cough documented in this encounter Additional Health Concerns Infection Onset Date Last Indicated Resolved Time COVID-19 Under Investigation 09/20/2019 09/19/2019 09/20/2019 9:56 PM CDT documented as of this encounter Care Teams Enrollment Nurse Relationship Specialty Start Date End Date Christiano Pop DO PCP - General 06/26/22 documented as of this encounter
--- OUTSIDE RECORDS SUMMARY | 2024-12-13 08:41 | XMS_ITS | Encounter Summary ---
Author Organization [facility] Address [address] [place] [address] Care Team Providers Care Finisher Machine Name Role Phone Christiano Pop DO Primary Care Provider Encounter Details Date Type Department Care Team (Late st Contact Info) Description 11/19/2003 Outpatient [facility] Division of Neurology [address] [place] [address], [address] [place] [address] Christiano Felder MD [address] [place] [address] Social History Tobacco Use Types Packs/Day Years Used Date Smoking Tobacco: Never Assessed Sex and Gender Information Value Date Recorded Sex Assigned at Not on file Legal Sex Male 5:08 AM CERTIFIED ALCOHOL COUNSELOR Gender Identity Not on file Sexual Orientation Not on file documented as of this encounter Plan of Treatment Upcoming Encounters Date Type Department Care Team (Late st Contact Info) Description 10/14/2025 1:15 PM CDT Office Visit [facility] Oncology and Hematology - [place] [address] [facility] [address] [place] [address] Mandeep Arnett MD [address] [facility] [address] [place] [address] documented as of this encounter Visit Diagnoses Not on filedocumented in this encounter Care Teams Finisher Machine Relationship Specialty Start Date End Date Christiano Pop DO [address] [facility] [address] [place] [address] PCP - General Internal Medicine 01/14/24 documented as of this encounter
--- OUTSIDE RECORDS SUMMARY | 2024-12-13 08:41 | XMS_ITS | Clinical Summary ---
Author Organization [facility] Address [address] [facility] [place] [address] Care Team Providers Care Suction Plate Carrier Cleaner Name Role Phone Christiano Pop DO Primary Care Provider +1 [phone] Source Comments [facility],non-owned Affiliates and Associated Physician Practices is amultiple site organization consisting of ambulatory clinics and hospital sitesin [place], [place], [place] and [place]. This disclosure is being madepursuant to the Care Everywhere program and may not contain all information available regarding this patient. Last updated 17.[facility] Allergies No known active allergies Medications * [...] CDT Oxygen Saturation 97% 05/11/2019 9:33 AM MINING SPECULATOR Inhaled Oxygen Concentration - - Weight 93 kg (205 lb) 05/11/2019 9:33 AM MINING SPECULATOR Height 180.3 cm (5' 11) 05/11/2019 9:33 AM MINING SPECULATOR Body Mass Index 28.59 05/11/2019 9:33 AM MINING SPECULATOR Plan of Treatment Health Maintenance Due Date [...] 2 - Risk 2-dose series) 09/27/2019 03/29/2019 DEPRESSION SCREENING 03/26/2024 COVID-19 VACCINE (1 - 2023-2 5 season) 2024 INFLUENZA VACCINE (#1) 2024 Respiratory Syncytial Virus [...] this topic Insurance ANTHEM ANTHEM Care Teams Suction Plate Carrier Cleaner Relationship Specialty Start Date End Date Christiano Pop DO PCP - General 06/26/22
--- OUTSIDE RECORDS SUMMARY | 2024-12-13 08:41 | XMS_ITS | Clinical Summary ---
Author Organization [facility] Address [address] [place] [address] Care Team Providers Care Wood Buffer Name Role Phone Christiano Pop DO Primary Care Provider +- [phone] Vamsi Beasley MD Unavailable [phone] Allergies No known active allergies Medications lisinopriL [...] Description 09/23/2024 2:00 PM CDT Office Visit [facility] Radiation Oncology [address] [place] [address] Kristin Samuel NP Prostate cancer (HCC) (Primary Dx) 09/16/[address] [facility] Radiation Oncology [address] [place] [address] Kristin Samuel NP Prostate cancer (HCC) (Primary [...] on file Legal Sex Male 12:30 PM TRANSLATOR Gender Identity Male 03/29/2022 5:09 PM TRANSLATOR Sexual Orientation Straight 03/29/2022 5: 09 PM TRANSLATOR Obstetrics History Last Filed Vital Signs Vital Sign Reading Time Taken Comments Blood Pressure 123/77 03/05/2024 10:49 AM TRANSLATOR Pulse 73 03/05/2024 10:49 AM TRANSLATOR Temperature 36.8 C (98.3 F) 01/15/2024 1:51 PM CDT Respiratory Rate 16 03/05/2024 10:49 AM TRANSLATOR Oxygen Saturation 100% 03/05/2024 10:49 AM TRANSLATOR Inhaled Oxygen Concentration - - Weight 92.2 [...] 2) 1980 Covid-19 Vaccine (3 - season) 2024, 06/01/2020 Influenza Vaccine (#1) 2024 Prostate Cancer [...] LAB BLOOD ORDERABLES F inal Result [facility] [place] [address] from Last 3 Months or Most Recently Relevant to Health Maintenance [place] Care Teams Wood Buffer Relationship Specialty Start Date End Date Christiano Pop DO PCP - General Internal Medicine 05/04/22 Vamsi Beasley MD [address] [facility] [address] [place] [address] Radiation Oncologist Radiation Oncology 10/17/22
[2024-12-13 09:40] LABS: Prostate Specific Antigen 1.2 ng/mL (< OR = 4.0)
== END 2024-12-13 08:36 | disposition home or self-care (01) ==
PROVIDERS: PCP Internal Medicine
DX: C61 Malignant neoplasm of prostate (principal)
CPT/HCPCS: 36415; 84153

== ENCOUNTER 2025-02-25 13:49 | Outpatient (CLI) | payer BC, SELFPAY ==
--- OUTSIDE RECORDS SUMMARY | 2025-02-25 15:12 | XMS_ITS | Encounter Summary ---
Author Organization [facility] Healthcare Address [address] [place] [address] Care Team Providers Care Certified Scrum Master Name Role Phone Christiano Pop DO Primary Care Provider [phone]- [phone] Vamsi Beasley MD Unavailable [phone] Encounter Details Date Type Department Care Team (Late st Contact Info) Description 02/24/2025 Orders Only [facility] Advanced Medicine Radiation Oncology [address] [facility] Advanced Medicine [facility] [place] [address] Vamsi Beasley MD [address] [facility] [address] [place], [place] [id number] Prostate cancer (HCC) (Primary Dx) Social History Tobacco Use Types Packs/Day Years Used Date Smoking Tobacco: Never Smokeless Tobacco: Never AUDIT-C Answer Date Recorded Q1: How often [...] on file Legal Sex Male 12:30 PM GROUNDS FOREMAN Gender Identity Male 03/29/2022 5:09 PM GROUNDS FOREMAN Sexual Orientation Straight 03/29/2022 5: 09 PM GROUNDS FOREMAN documented as of this encounter Plan of Treatment Scheduled Orders Name Type Priority Associated Diagnoses Orde r Schedule PSA diagnostic Lab Routine Prostate cancer (HCC) Expected: 02/24/2025, Expires: 02/24/2026 documented as of this encounter Visit Diagnoses Diagnosis Prostate cancer (HCC)- Primary Malignant neoplasm of prostate documented in this encounter Care Teams Certified Scrum Master Relationship Specialty Start Date End Date Christiano Pop DO PCP - General Internal Medicine 05/04/22 Vamsi Beasley MD [address] [facility] [address] [place] [address] Radiation Oncologist Radiation Oncology 10/17/22 documented as of this encounter
--- OUTSIDE RECORDS SUMMARY | 2025-02-25 15:12 | XMS_ITS | Clinical Summary ---
Author Organization [facility] Address [address] [place] [address] Care Team Providers Care Horseback Excavator Name Role Phone Christiano Pop DO Primary Care Provider [phone]- [phone] Vamsi Beasley MD Unavailable [phone] Allergies No known active allergies Medications lisinopriL [...] Encounters Date Type Department Care Team Description 02/24/2025 Orders Only [facility] Radiation Oncology [address] [place] [address] Vamsi Beasley MD Prostate cancer (HCC) (Primary Dx) 12/15/2024 2:40 PM CDT Telemedicine [facility] Radiation Oncology [address] [place] [address] Shruthi Bennett PA Prostate cancer (HCC) (Primary Dx) 12/15/2024 Telephone [facility] Radiation Oncology [address] [place] [address] Shruthi Bennett PA Scheduling Appointments from Last 3 Months Surgical History Surgery [...] on file 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 Gender Identity Male 03/29/2022 5:09 PM HOME SCHOOL TEACHER Sexual Orientation Straight 03/29/2022 5: 09 PM HOME SCHOOL TEACHER Last Filed Vital Signs Vital Sign Reading Time Taken Comments Blood Pressure 123/77 03/05/2024 10:49 AM HOME SCHOOL TEACHER Pulse 73 03/05/2024 10:49 AM HOME SCHOOL TEACHER Temperature 36.8 C (98.3 F) 01/15/2024 1:51 PM CDT Respiratory Rate 16 03/05/2024 10:49 AM HOME SCHOOL TEACHER Oxygen Saturation 100% 03/05/2024 10:49 AM HOME SCHOOL TEACHER Inhaled Oxygen Concentration - - Weight 92.2 [...] 1:48 PM CDT 06/05/2024 2:08 PM CDT us Vamsi Beasley MD LAB BLOOD ORDERABLES F inal Result [facility] Department [place] [address] from Last 3 Months or Most Recently Relevant to Health Maintenance [place] Care Teams Horseback Excavator Relationship Specialty Start Date End Date Christiano Pop DO PCP - General Internal Medicine 05/04/22 Vamsi Beasley MD [address] [facility] [address] [place] [address] Radiation Oncologist Radiation Oncology 10/17/22
--- OUTSIDE RECORDS SUMMARY | 2025-02-25 15:12 | XMS_ITS | Encounter Summary ---
Author Organization [facility] Address [address] [facility] [place] [address] Care Team Providers Care Snipper Name Role Phone Christiano Pop DO Primary Care Provider [phone] Encounter Details Date Type Department Care Team (Late st Contact Info) Description 09/20/2019 Lab Requisition [facility] MICROBIOLOGY [address] [place] [address] Vasquez Mello MD [address] [place] [address] Cough Social History Tobacco Use [...] Not detected, Invalid 09/20/2019 9:56 PM CDT [facility] MICROBIOLOGY Microbiology SPECIMEN FROM NASOPHARYNGEAL STRUCTURE / Unknown Collection / Unknown 09/19/2019 2:48 PM CDT 09/20/2019 12:02 PM CDT Narrative [facility] MICROBIOLOGY - 09/20/2019 9:56 PM CDT This Real Time RT-PCR assay was developed and its performance characteristics determined by [facility]. This test has been authorized [...] LAB - MICROBIOLOGY ORDERABL ES Final Result [facility] MICROBIOLOGY [address] [place] [address], [facility] [phone] documented in this encounter Visit Diagnoses Diagnosis Cough documented in this encounter Additional Health Concerns Infection Onset Date Last Indicated Resolved Time COVID-19 Under Investigation 09/20/2019 09/19/2019 09/20/2019 9:56 PM CDT documented as of this encounter Care Teams Snipper Relationship Specialty Start Date End Date Christiano Pop DO PCP - General 06/26/22 documented as of this encounter
--- OUTSIDE RECORDS SUMMARY | 2025-02-25 15:12 | XMS_ITS | Clinical Summary ---
Author Organization [facility] [employer] Address [address] [place] [address] Care Team Providers Care Online Education Manager Name Role Phone Christiano Pop DO Primary Care Provider [phone] Source Comments [facility] [employer],non-owned Affiliates and Associated Physician Practices is amultiple site organization consisting of ambulatory clinics and hospital sitesin [place], [place], [place]. This disclosure is being madepursuant to the Care Everywhere program and may not contain all information available regarding this patient. Last updated 17.[facility] [employer] Allergies No known active allergies Medications * [...] CDT Oxygen Saturation 97% 05/11/2019 9:33 AM DIGITAL MEDIA SALES CONSULTANT Inhaled Oxygen Concentration - - Weight 93 kg (205 lb) 05/11/2019 9:33 AM DIGITAL MEDIA SALES CONSULTANT Height 180.3 cm (5' 11) 05/11/2019 9:33 AM DIGITAL MEDIA SALES CONSULTANT Body Mass Index 28.59 05/11/2019 9:33 AM DIGITAL MEDIA SALES CONSULTANT Plan of Treatment Health Maintenance Due Date [...] DEPRESSION SCREENING 03/26/2024 COVID-19 VACCINE (1 - 2024-2 6 season) 2024 INFLUENZA VACCINE (#1) 2024 Respiratory [...] this topic Insurance ANTHEM ANTHEM Care Teams Online Education Manager Relationship Specialty Start Date End Date Christiano Pop DO PCP - General 06/26/22
--- OUTSIDE RECORDS SUMMARY | 2025-02-25 15:13 | XMS_ITS | Encounter Summary ---
Author Organization [facility] Address [address] [place] [address] Care Team Providers Care Sole Conditioner Name Role Phone Christiano Pop DO Primary Care Provider Encounter Details Date Type Department Care Team (Late Contact Info) Description 11/19/[address] 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 Gender Identity Not on file Sexual Orientation Not on file documented as of this encounter Plan of Treatment Upcoming Encounters Date Type Department Care Team (Late Contact Info) Description 10/14/2025 1:15 PM CDT Office Visit [facility] Oncology and Hematology - [place] [address] [facility] [address] [place] [address] Mandeep Arnett MD [address] [facility] [address] [place] [address] documented as of this encounter Visit Diagnoses Not on filedocumented in this encounter Care Teams Sole Conditioner Relationship Specialty Start Date End Date Christiano Pop DO [address] [facility] [address] [place] [address] PCP - General Internal Medicine 01/14/24 documented as of this encounter
--- OUTSIDE RECORDS SUMMARY | 2025-02-25 15:13 | XMS_ITS ---
Author Organization [facility] Address [address] [place] [address] Care Team Providers Care Partition Notcher Name Role Phone Christiano Pop DO Primary Care Provider +1- [phone] Vamsi Beasley MD Unavailable [phone] Active Problems Problem Noted Date Diagnosed Date [...]
--- OUTSIDE RECORDS SUMMARY | 2025-02-25 15:13 | XMS_ITS | Clinical Summary ---
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 Gender Identity Not on file Sexual Orientation [...] Description 10/14/2025 1:15 PM CDT Office Visit [facility] Oncology and Hematology [facility] [address] [facility] [address] [place] [address] Mandeep Arnett MD [address] [facility] [address] [place] [address] Health Maintenance Due Date Last [...] (1 - 1-dose 75+ series) 2036 Insurance [facility] BLUE PREFERRED [facility] BLUE PREFERRED Care Teams Piece Presser Relationship Specialty Start Date End Date Christiano Pop DO [address] [address] PCP - General Internal Medicine 01/14/24
--- OUTSIDE RECORDS SUMMARY | 2025-02-25 15:13 | XMS_ITS | Encounter Summary ---
Author Organization [facility] Address 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 Gender Identity Not on file Sexual Orientation Not on file documented as of this encounter Plan of Treatment Upcoming Encounters Date Type Department Care Team (Late st Contact Info) Description 10/14/2025 1:15 PM CDT Office Visit [facility] Oncology and Hematology - [place] [address] [facility] [address] [place] [address] Mandeep Arnett MD [address] [facility] [address] [place] [address] documented as of this encounter Visit Diagnoses Diagnosis Other causes of encephalitis, myelitis, and encephalomyelitis- Primary documented in this encounter Care Teams Celebrity Chef Entrepreneur Media Personality Relationship Specialty Start Date End Date Christiano Pop DO [address] [facility] [address] [place] [address] PCP - General Internal Medicine 01/14/24 documented as of this encounter
[2025-02-25 16:30] LABS: Prostate Specific Antigen 1.1 ng/mL (< OR = 4.0)
== END 2025-02-25 13:50 | disposition home or self-care (01) ==
PROVIDERS: PCP Internal Medicine
DX: C61 Malignant neoplasm of prostate (principal)
CPT/HCPCS: 36415; 84153

== ENCOUNTER 2025-03-02 14:28 | Outpatient (CLI) | payer BC, SELFPAY ==
--- NOTE | ~2025-03-02 | XR_ITS ---
EXAMINATION: XR knee RT 3V DATE: 03/02/2025 14:47 INDICATION: Right knee pain. Trauma after running. TECHNIQUE: AP weightbearing view, lateral weightbearing view, oblique view and sunrise view of the right knee were obtained. COMPARISON: None. FINDINGS: No acute bony lesions of the right knee. Postsurgical changes of ACL reconstruction noted. Chondrocalcinosis of medial and lateral menisci. Moderate arthritis of patellofemoral joint. IMPRESSION: 1. Postsurgical changes of ACL reconstruction with chondrocalcinosis and degenerative arthritis. No acute bony lesions. 2. If symptoms are localized and persistent, MRI is indicated. Reviewed, dictated and finalized at location [facility] [employer] IMPRESSION: 1. Postsurgical changes of ACL reconstruction with chondrocalcinosis and degene rative arthritis. No acute bony lesions. 2. If symptoms are localized and persistent, MRI is indicated.
== END 2025-03-02 14:29 | disposition home or self-care (01) ==
LOC: GOSHIMG 14:31
PROVIDERS: PCP Internal Medicine
DX: M17.11 Unilateral primary osteoarthritis, right knee (principal); M11.261 Other chondrocalcinosis, right knee; Z98.890 Other specified postprocedural states
CPT/HCPCS: 73562